=== PATIENT | male | born 1945 | race African-American/Black ===

== ENCOUNTER → 2020-10-28 10:28 | Outpatient (BNVA) | payer MEDICARE, OTHER, SELFPAY | PROVIDERS: Visit Provider Nurse Practitioner | CPT/HCPCS: Q3014 ==

== ENCOUNTER → 2021-05-07 08:44 | Outpatient (BNVA) | payer MEDICARE, OTHER, MEDICAID, SELFPAY | PROVIDERS: Visit Provider Nurse Practitioner | DX: K31.84 Gastroparesis (principal) | CPT/HCPCS: Q3014 ==

== ENCOUNTER 2021-07-31 13:39 | Outpatient (REF) | payer MEDICARE, OTHER, SELFPAY ==
--- NOTE | ~2021-07-31 | CT_ITS ---
EXAMINATION: CT CHEST SCREENING CLINICAL INFORMATION: Personal history of nicotine dependence. COMPARISON: None. TECHNIQUE: Multidetector volumetric CT imaging of the chest is performed without contrast using low dose technique. Additional 2-D coronal and sagittal reformatted images and axial 3-D maximum intensity projection (MIP) images are generated on the CT workstation. This CT examination was performed using dose optimization techniques as appropriate, variously including the following: *Automated exposure control *Adjustment of mA and/or kV according to patient size (this includes techniques or standardized protocols for targeted exams where dose is matched to indication/reason for exam; i.e. extremities or head) *Use of iterative reconstruction technique DLP: 87 mGy-cm FINDINGS: LUNGS: The lungs are well-expanded and clear of acute pneumonic consolidation. There is a 1 mm noncalcified nodule right lower lobe axial image 407/6, right middle lobe image 252/6. No additional lung nodules was seen. No ground-glass density or atelectatic changes are seen. MEDIASTINUM: The thyroid lobes are symmetric and normal. The central trachea and the bronchi are widely patent. Heart size and the great vessels are normal caliber. There are no pericardial effusions. There are minimal coronary artery calcifications. Central trachea and the bronchi are widely patent. No abnormal sized mediastinal or hilar lymph nodes seen. PLEURA: There are numerous subpleural calcified and noncalcified plaques especially posteriorly based in both upper lung regions. AXILLA: No abnormal axillary lymph nodes. There is no chest wall abnormality. UPPER ABDOMEN: Visualized liver, spleen, gallbladder, pancreas, and adrenal glands are unremarkable. OSSEOUS STRUCTURES: There is no lytic or sclerotic process seen. There is mild ventral spondylosis mid and lower dorsal spine. CT/CT lung screening IMPRESSION: Punctate 1 mm nodules in the right middle lobe and right lower lobe. In addition, there are calcified and noncalcified pleural plaques likely from previous asbestosis exposure. ASSESSMENT: Lung-RADS category 2, benign. RECOMMENDATION: Low-dose annual CT chest.
== END 2021-07-31 13:40 | disposition home or self-care (01) ==
LOC: HO.CT 13:39
PROVIDERS: Visit Provider Physician Assistant Medical
DX: Z12.2 Encounter for screening for malignant neoplasm of respiratory organs (principal); Z87.891 Personal history of nicotine dependence
CPT/HCPCS: 71271; G0296

== ENCOUNTER 2021-08-07 07:36 | Outpatient (REF) | payer MEDICARE, OTHER, SELFPAY ==
--- NOTE | ~2021-08-07 | US_ITS ---
EXAMINATION: US RETROPERITONEAL LIMITED (AORTA) CLINICAL INFORMATION: Left common iliac artery dilation. COMPARISON: AAA screening 05/19/2020. TECHNIQUE: Parks-scale, color Doppler and spectral Doppler evaluation of the abdominal aorta. FINDINGS: Atherosclerotic aorta. The measurements of the aorta in maximum AP and transverse dimensions respectively are as follows: Proximal: 3.2 x 3.0 cm. Previous 3.1 x 2.9 cm. Mid: 2.8 x 2.6 cm. Previous 2.5 x 2.1 cm. Distal: 2.5 x 2.4 cm. Previous 2.3 x 2.5 cm. PSV: 72 cm/s. The measurements of the common iliac arteries in maximum AP and TRV dimensions are as follows: Right Common Iliac Artery: 1.1 x 1.3 cm. Left Common Iliac Artery: 2.6 x 2.2 cm. Previous 1.8 x 1.7 cm. US/US abdominal aortic aneurysm IMPRESSION: Enlarging left common iliac artery aneurysm measuring 2.6 x 2.2 cm compared to 1.8 x 1.7 cm 05/19/2020. Stable abdominal aorta without aneurysm.
== END 2021-08-07 07:37 | disposition home or self-care (01) ==
LOC: HO.US 07:36
PROVIDERS: PCP Family Medicine; Visit Provider Family Medicine
DX: I72.3 Aneurysm of iliac artery (principal)
CPT/HCPCS: 76706

== ENCOUNTER 2021-11-05 09:00 | Outpatient (REF) | payer MEDICARE, OTHER, SELFPAY ==
[2021-11-05 10:20] LABS: MANUAL DIFF FLAG NO
[2021-11-05 10:33] LABS: Basophils Percent Auto 0.4 % (0-2); Eosinophils Absolute Auto 0.2 X10*3/uL (0.0-0.4); Eosinophils Percent Auto 2.3 % (0-4); Hematocrit 35.5 % (42.0-52.0); Hemoglobin 11.6 g/dl (14.0-18.0); Imm Gran Abs Auto 0.04 X10*3/uL (0.00-0.03); Imm Gran Pct Auto 0.4 % (0.0-0.4); Lymphocytes Absolute Auto 2.1 X10*3/uL (1.2-4.9); Lymphocytes Percent Auto 23.2 % (20-40); Mean Corpuscular HGB Conc 32.7 g/dl (31.0-36.0); Mean Corpuscular Hemoglobin 32.5 pg (27.0-33.0); Mean Corpuscular Volume 99.4 fL (80.0-98.0); Mean Platelet Volume 9.9 fL (9.4-12.4); Monocytes Absolute Auto 0.6 X10*3/uL (0.1-1.2); Monocytes Percent Auto 6.8 % (2-11); Neutrophils Absolute Auto 6.1 x10*3/uL (2.0-8.3); Neutrophils Percent Auto 66.9 % (45-73); Platelet Count 277 X10*3/uL (160-400); Red Blood Count 3.57 X10*6/uL (4.60-5.80); White Blood Count 9.1 X10*3/uL (4.8-10.8)
[2021-11-05 11:22] LABS: Alanine Aminotransferase 10 U/L (0-40); Alkaline Phosphatase 70 U/L (39-117); Anion Gap 13 (12-20); Aspartate Amino Transferase 12 U/L (5-37); Bilirubin Total 0.6 mg/dL (0.0-1.0); Blood Urea Nitrogen 22 mg/dL (9-16); Carbon Dioxide 26 mmol/L (22-29); Chloride 103 mmol/L (96-108); Estimated Glomerular Filt Rate 38; Glucose Random 126 mg/dL (60-115); Potassium 4.4 mmol/L (3.3-5.1); Sodium 138 mmol/L (135-145); Total Protein 6.9 g/dL (6.5-8.0)
== END 2021-11-05 09:01 | disposition home or self-care (01) ==
LOC: HO.LAB 09:00
PROVIDERS: PCP Family Medicine; Referring Provider Family Medicine; Visit Provider Nurse Practitioner
DX: K31.84 Gastroparesis (principal); D12.6 Benign neoplasm of colon, unspecified
CPT/HCPCS: 36415; 80053; 85025; 99212

== ENCOUNTER 2022-02-03 10:26 | Day surgery (SDC) | payer MEDICARE, MEDICAID, OTHER, SELFPAY ==
[2022-01-28 20:14] VITALS: BMI 34.0
--- NOTE | 2022-02-02 13:27 | P.CONAN_ITS ---
Documented by User: Soco Blas NP 02/02/22 13:28 HPI - Anesthesia Eval Consult details Narrative: 76yo M for Colonoscopy PMFSH Active Problems Active Problems: All Active Problems (Updated 01/28/22 @ 19:58 by Maryann Jimenez RN) Gastroparesis (Acute) Personal history of nicotine dependence (Acute) Tubular adenoma of colon (Acute ~2013) Past Medical History Medical History Arthritis Diabetes GERD (gastroesophageal reflux disease) Hyperlipidemia Hypertension Iliac artery aneurysm (~2019) YENNI (obstructive sleep apnea) Personal history of nicotine dependence Tubular adenoma of colon (~2013) Family History Family History (Updated 06/18/21 @ 15:14 by Kina Ying PA-C) Father Stomach cancer Mother Breast cancer Diabetes HTN (hypertension) Sister Uterine cancer Maternal Grandmother Diabetes HTN (hypertension) Surgical History Surgical History History of colonoscopy Social History Social History (Updated 07/31/21 @ 13:30 by Kina Ying PA-C) Alcohol intake: current Alcohol intake frequency: does not drink Patient Tobacco Use Status: Former Tobacco user Years Smoked: 48 - onset 18yo, 1/2ppd x 48yrs, 24pyh Use of substances other than those prescribed or required for medical reasons: Yes Substance Use Type: Marijuana Substance Use Frequency: Weekly Are you DNR?: No Advance Directives: No Advance Directives Information Provided: No Advance Directives on File: No Recently lost weight without trying: No Nutrition Risks: No Nutritional Risk Meds Allergies Allergy/AdvReac Type Severity Reaction Status Date / Time No Known Allergies Allergy Verified 11/05/21 09:09 [No Known Allergies*] Home Medications Medication Instructions Recorded Confirmed Last Taken Type allopurinol 300 mg tablet 300 mg PO DAILY 10/28/20 01/28/22 Unknown History atorvastatin 20 mg tablet 20 mg PO QAM 10/28/20 01/28/22 Unknown History carvedilol 12.5 mg tablet 12.5 mg PO BID 10/28/20 01/28/22 Unknown History doxazosin 4 mg tablet 4 mg PO DAILY 10/28/20 01/28/22 Unknown History lisinopril 10 1 tab PO QAM 10/28/20 Unknown History mg-hydrochlorothiazide 12.5 mg tablet multivitamin with minerals 1 tab PO QAM 10/28/20 01/28/22 Unknown History pioglitazone 15 mg tablet 15 mg PO QAM 10/28/20 01/28/22 Unknown History sodium bicarbonate 650 mg tablet 1,300 mg PO BID 10/28/20 01/28/22 Unknown History Exam Exam Date and Time: February 02, 2022 1327 Height,Weight and Vital Signs: Height 5 ft 9 in Weight 104.326 kg Pertinent Lab Results Pertinent Lab Results: Laboratory Tests 11/05/21 11/05/21 10:19 10:19 WBC 9.1 Hgb 11.6 L Hct 35.5 L Plt Count 277 Sodium 138 Potassium 4.4 Chloride 103 Carbon Dioxide 26 BUN 22 H Creatinine 1.74 H Assessment and Plan Assessment Anesthesia Assessment: Chart Reviewed Documented by User: Jade Godfrey MD 02/03/22 11:15 [facility] Past Medical History Medical History Arthritis Diabetes GERD (gastroesophageal reflux disease) Hyperlipidemia Hypertension Iliac artery aneurysm (~2019) YENNI (obstructive sleep apnea) Personal history of nicotine dependence Tubular adenoma of colon (~2013) Family History Family History (Updated 06/18/21 @ 15:14 by Kina Ying PA-C) Father Stomach cancer Mother Breast cancer Diabetes HTN (hypertension) Sister Uterine cancer Maternal Grandmother Diabetes HTN (hypertension) Family history of problems with anesthesia: No Surgical History Surgical History History of colonoscopy History of Problems with Anesthesia: No Social History Social History (Updated 07/31/21 @ 13:30 by Kina Ying PA-C) Alcohol intake: current Alcohol intake frequency: does not drink Patient Tobacco Use Status: Former Tobacco user Years Smoked: 48 - onset 18yo, 1/2ppd x 48yrs, 24pyh Use of substances other than those prescribed or required for medical reasons: Yes Substance Use Type: Marijuana Substance Use Frequency: Weekly Are you DNR?: No Advance Directives: No Advance Directives Information Provided: No Advance Directives on File: No Recently lost weight without trying: No Nutrition Risks: No Nutritional Risk Meds Allergies Allergy/AdvReac Type Severity Reaction Status Date / Time No Known Allergies Allergy Verified 11/05/21 09:09 [No Known Allergies*] Home Medications Medication Instructions Recorded Confirmed Last Taken Type allopurinol 300 mg tablet 300 mg PO DAILY 10/28/20 01/28/22 Unknown History atorvastatin 20 mg tablet 20 mg PO QAM 10/28/20 01/28/22 Unknown History carvedilol 12.5 mg tablet 12.5 mg PO BID 10/28/20 01/28/22 Unknown History doxazosin 4 mg tablet 4 mg PO DAILY 10/28/20 01/28/22 Unknown History lisinopril 10 1 tab PO QAM 10/28/20 Unknown History mg-hydrochlorothiazide 12.5 mg tablet multivitamin with minerals 1 tab PO QAM 10/28/20 01/28/22 Unknown History pioglitazone 15 mg tablet 15 mg PO QAM 10/28/20 01/28/22 Unknown History sodium bicarbonate 650 mg tablet 1,300 mg PO BID 10/28/20 01/28/22 Unknown History Exam Airway Mallampati Class: II TM Dist: >3cm Neck ROM: Full Denture: Upper Heart: rrr Lungs: cta Assessment and Plan Assessment Anesthesia Assessment: Anesthesia Plan Discussed and Chart Reviewed Final Anesthetic Review Family History of Problems with Anesthesia: No History of Problems with Anesthesia: No NPO: Yes ASA Class: III Final Preanesthetic Review: No Changes in Pt Med Stat, Meds/Allgs Chart Reviewed and Consent Obtained/Reviewed Patient Risk: Intermediate Procedure Risk: Intermediate Anesthetic Plan Anesthetic Plan: MAC: Disposition: Standard PACU
--- NOTE | 2022-02-03 10:41 | MHC.SHP ---
Pre-Procedural Eval Section A Date of Service: 02/03/22 Section B Chief Complaint: Benign neoplasm of colon, Relevant Family History (Specify if Yes): No Relevant Social History: None (ex smoker) Present Medications: see Short Stay Collaborative assessment Medical History: Significant History (Arthritis Diabetes GERD (gastroesophageal reflux disease) Hyperlipidemia Hypertension Iliac artery aneurysm (~2019) YENNI (obstructive sleep apnea) Personal history of nicotine dependence Tubular adenoma of colon (~2013)) History of Previous Operations: Relevant previous surgery/procedure and date(s) (History of colonoscopy) Allergies: Allergies Allergy/AdvReac Type Severity Reaction Status Date / Time No Known Allergies Allergy Verified 11/05/21 09:09 [No Known Allergies*] Review of Systems Sugical H&P ROS: Negative: Constitution, Cardiovascular, Respiratory, Neurological, Psychiatric, Hem-Onc, Allergic/Immunologic, Gastrointestinal, Genitourinary, Musculoskeletal, Integumentary, Endocrine and Eyes/Ears/Nose/Throat Exam Surgical H&P Exam: Normal: HEENT, Normal: Heart, Normal: Lungs, Normal: Extremities, Normal: Abdomen, Normal: Skin and Normal: Neurological (blind left eye) Plan Diagnosis/Plan: Unchanged I have reviewed the history and physical and performed a pertinent physical examination on my patient. No changes have occurred unless specified.
[2022-02-03 11:01] VITALS: BP 137/88; PULSE 77; RESP 17; TEMP 36.9; O2SAT 99
[2022-02-03] MEDS: Lactated Ringers 1,000 ML 100 ML IVCONT (11:02)
[2022-02-03 11:08] LABS: Glucose, Whole Blood 118 mg/dL (60-115)
--- NOTE | 2022-02-03 11:45 | P.BOP_ITS ---
Brief Operative Note Date of Service: 02/03/22 Pre-op diagnosis: hx of polyps, colon screening Post-op diagnosis: same Procedure: see op note Surgeon: Asad Lyles MD Anesthesia: MAC Was an Investigative Research Specialist used for this Procedure?: No Estimated blood loss (mL): 0 Condition: stable Disposition: PACU
--- NOTE | 2022-02-03 11:45 | W.PM.OPN ---
Operative Note Operative Note Date of Service: 02/03/22 Narrative: Operative Information Procedure Description: Colonoscopy Indication: hx of polyps, colon screening Anesthesia: MAC COLONOSCOPY Instrument: Olympus variable stiffness adult scope 190L Colonoscopy Monitoring: Vital signs and clinical assessment, continuous EKG monitoring, Pulse oximetry, Carbon Dioxide monitoring and blood pressure monitoring were done throughout the procedure. Colon withdrawal time was 13 minutes. Procedure: The patient was placed in the left lateral decubitis position and pre-procedure medications were administered. After a digital rectal examination of the ano-rectum, the video colonoscope was inserted into the rectum and advanced through the colon to the cecum/TI. The colonoscope was slowly withdrawn in a retrograde panoramic fashion and the colon mucosa was carefully examined including a retroflexed view of the rectum. Findings and interventions are described below. Procedure Difficulty: easy Findings: Terminal Ileum-normal Cecum:normal Ascending Colon: x 1 semi pedunculated polyp 10-12 mm removed with cold snare, x 1 sessile polyp 6-8 mm removed with cold snare, x 1 sessile polyp 4-6 mm removed with cold forceps Transverse Colon -normal Descending Colon:normal Sigmoid Colon: moderate diverticulosis noted, x2 sessile polyps 10-12 mm removed with cold snare Rectum: Retroflexion with small internal hemorrhoids, grade I Anorectum - normal Colon preparation: Peterson Bowel Preparation Scale Right colon; 2 Transverse colon: 3 Left colon; 3 (0 = Unprepared colon segment with mucosa not seen due to solid stool that cannot be cleared. 1 = Portion of mucosa of the colon segment seen, but other areas of the colon segment not well seen due to staining, residual stool and/or opaque liquid. 2 = Minor amount of residual staining, small fragments of stool and/or opaque liquid, but mucosa of colon segment seen well. 3 = Entire mucosa of colon segment seen well with no residual staining, small fragments of stool or opaque liquid) Impression and Post Procedure Diagnosis: polyps internal hemorrhoids diverticular disease Plan: High fiber diet leaflet Avoid straining at stool, epsom salts and sitz bath, anusol supps or cream Repeat Colonoscopy in 2-3 years if health allows or earlier if clinically indicated Above findings were reviewed with the patient and relevant handouts were provided if indicated.
[2022-02-03 11:47] VITALS: BP 109/66; PULSE 67; RESP 16; TEMP 36.7; O2SAT 98
[2022-02-03 12:02] VITALS: BP 150/91; PULSE 60; RESP 16; O2SAT 97
[2022-02-03 12:17] VITALS: BP 158/92; PULSE 60; RESP 16; TEMP 36.7; O2SAT 97
== END 2022-02-03 13:09 | disposition home or self-care (01) ==
PROVIDERS: PCP Family Medicine; Visit Provider Internal Medicine Gastroenterology
PROC: 0DBE8ZZ Excision of Large Intestine, Via Natural or Artificial Opening Endoscopic (ICD-10-PCS; CPT 45385; principal; 2022-02-03 12:30)
DX: Z12.11 Encounter for screening for malignant neoplasm of colon (principal); Z86.010 Personal history of colon polyps; D12.2 Benign neoplasm of ascending colon; D12.5 Benign neoplasm of sigmoid colon; K57.30 Diverticulosis of large intestine without perforation or abscess without bleeding; K64.8 Other hemorrhoids; K21.9 Gastro-esophageal reflux disease without esophagitis; E78.5 Hyperlipidemia, unspecified; I72.3 Aneurysm of iliac artery; I10 Essential (primary) hypertension; G47.33 Obstructive sleep apnea (adult) (pediatric); E11.9 Type 2 diabetes mellitus without complications; Z79.84 Long term (current) use of oral hypoglycemic drugs; Z79.899 Other long term (current) drug therapy; Z87.891 Personal history of nicotine dependence
CPT/HCPCS: 45385; 45380; 82947; 88305

== ENCOUNTER → 2022-02-16 15:46 | Outpatient (BNVA) | payer MEDICARE, OTHER, SELFPAY | PROVIDERS: PCP Family Medicine; Visit Provider Nurse Practitioner | DX: K31.84 Gastroparesis (principal); D12.2 Benign neoplasm of ascending colon; D12.5 Benign neoplasm of sigmoid colon; Z98.890 Other specified postprocedural states | CPT/HCPCS: 99212 ==

== ENCOUNTER 2022-11-26 07:41 | Outpatient (REF) | payer MEDICARE, MEDICAID, SELFPAY ==
--- NOTE | ~2022-11-26 | CT_ITS ---
EXAMINATION: LUNG CANCER SCREENING CT CHEST WITHOUT CONTRAST CLINICAL INFORMATION: Former smoker with 50 pack year history, quit 15 years ago. COMPARISON: 07/31/2021 TECHNIQUE: Multidetector volumetric CT imaging of the chest was obtained noncontrast using low dose screening CT technique. Axial thin section 0.625 mm reformations in soft tissue and lung windows were obtained. Sagittal and coronal reformations were obtained. Axial MIP images were also created and reviewed. This CT examination was performed using dose optimization techniques as appropriate, variously including the following: *Automated exposure control *Adjustment of mA and/or kV according to patient size (this includes techniques or standardized protocols for targeted exams where dose is matched to indication/reason for exam; i.e. extremities or head) *Use of iterative reconstruction technique TOTAL EXAM DLP: 93 mGy-cm. FINDINGS: PULMONARY NODULES: No new or suspicious pulmonary nodules. Stable calcified benign calcified and noncalcified nodular pleural plaques along the bilateral posterior hemithoraces, most notably along the superior segments of the lower lobes bilaterally. There are couple stable pleural nodules along the right diaphragmatic pleura as well. LUNGS / PLEURA: Minimal emphysema. Diffuse mild bronchial wall thickening without bronchiectasis. No pleural effusion or pneumothorax. MEDIASTINUM / VINCE: Heart normal in size without pericardial effusion. Great vessels normal caliber. No lymphadenopathy. Coronary calcifications present. Imaged thyroid gland unremarkable. CHEST WALL / AXILLA: Unremarkable. UPPER ABDOMEN: Bilateral renal cortical thinning. Right renal cysts are benign. No follow-up imaging recommended. OSSEOUS STRUCTURES: No acute or suspicious osseous abnormalities. CT/CT lung screening IMPRESSION: * No evidence of pulmonary malignancy. * Stable bilateral pleural nodules and plaques. Favor asbestos related pleural disease. ASSESSMENT: Lung RADS category: 2. Benign appearance or behavior. Nodules with a very low likelihood of becoming a clinically active cancer due to size or lack of growth. Continue annual screening with low-dose CT in 12 months. Probability of malignancy less than 1%. INCIDENTAL FINDINGS (S CATEGORY): None. RECOMMENDATION: Follow up low dose CT chest in 1 year.
== END 2022-11-26 07:42 | disposition home or self-care (01) ==
LOC: HO.CT 07:41
PROVIDERS: Visit Provider Physician Assistant Medical
DX: Z12.2 Encounter for screening for malignant neoplasm of respiratory organs (principal); Z87.891 Personal history of nicotine dependence
CPT/HCPCS: 71271

== ENCOUNTER 2023-08-12 08:37 | Outpatient (REF) | payer OTHER, SELFPAY ==
--- NOTE | ~2023-08-12 | XR_ITS ---
EXAMINATION: XR HIP, RIGHT CLINICAL INFORMATION: Intermittent hip pain COMPARISON: None available. TECHNIQUE: Two views of the right hip. FINDINGS: No fracture. Alignment is anatomic. Hip joint space is maintained. Soft tissues are unremarkable. XR/XR hip RT min 2V IMPRESSION: Normal right hip.
== END 2023-08-12 08:38 | disposition home or self-care (01) ==
LOC: HO.HHCX 08:37
PROVIDERS: Visit Provider Family Medicine
DX: M25.551 Pain in right hip (principal); G89.29 Other chronic pain
CPT/HCPCS: 73502

== ENCOUNTER 2023-12-01 07:50 | Outpatient (REF) | payer MEDICARE, SELFPAY ==
--- NOTE | ~2023-12-01 | CT_ITS ---
EXAMINATION: CT CHEST SCREENING CLINICAL INFORMATION: Nonsmoker for 18 years with history of 1 pack per day for 40 years. COMPARISON: CT lung screening 11/26/2022. TECHNIQUE: Multidetector volumetric CT imaging of the chest is performed without contrast using low dose technique. Additional 2D coronal and sagittal reformatted images and axial 3D maximum intensity projection (MIP) images are generated on the CT workstation. This CT examination was performed using dose optimization techniques as appropriate, variously including the following: *Automated exposure control. *Adjustment of mA and/or kV according to patient size (this includes techniques or standardized protocols for targeted exams where dose is matched to indication/reason for exam; i.e. extremities or head). *Use of iterative reconstruction technique. DLP: 71 mGy-cm FINDINGS: LUNGS: Again seen are multiple nodular pleural plaques most with calcification. No new or suspicious lung masses seen. There are mild emphysematous changes seen along with bronchial thickening. MEDIASTINUM: The mediastinum is unremarkable. There is trace anterior pericardial fluid. CORONARY ARTERY CALCIFICATION: Mild. PLEURA: There is no pleural effusion. No pleural mass or thickening. AXILLA: No lymphadenopathy. UPPER ABDOMEN: Cholelithiasis. Benign renal cysts are again seen which need no additional imaging or follow-up. OSSEOUS STRUCTURES: Unremarkable. CT/CT lung screening IMPRESSION: Stable appearance of calcified pleural plaques. No suspicious lung nodules. ASSESSMENT: Lung-RADS category 2: Benign. RECOMMENDATION: Routine annual low-dose CT screening in 12 months.
== END 2023-12-01 07:51 | disposition home or self-care (01) ==
LOC: HO.CT 07:50
PROVIDERS: PCP Family Medicine; Visit Provider Nurse Practitioner Family
DX: Z12.2 Encounter for screening for malignant neoplasm of respiratory organs (principal); Z87.891 Personal history of nicotine dependence
CPT/HCPCS: 71271

== ENCOUNTER 2024-02-10 08:15 | Outpatient (REF) | payer MEDICARE, SELFPAY ==
[2024-02-10 11:17] LABS: MANUAL DIFF FLAG NO
[2024-02-10 11:29] LABS: Basophils Percent Auto 0.4 % (0-2); Eosinophils Absolute Auto 0.2 X10*3/uL (0.0-0.4); Eosinophils Percent Auto 2.9 % (0-4); Hematocrit 33.2 % (42.0-52.0); Hemoglobin 11.2 g/dl (14.0-18.0); Imm Gran Abs Auto 0.03 X10*3/uL (0.00-0.03); Imm Gran Pct Auto 0.4 % (0.0-0.4); Lymphocytes Absolute Auto 1.7 X10*3/uL (1.2-4.9); Lymphocytes Percent Auto 24.6 % (20-40); Mean Corpuscular HGB Conc 33.7 g/dl (31.0-36.0); Mean Corpuscular Hemoglobin 33.5 pg (27.0-33.0); Mean Corpuscular Volume 99.4 fL (80.0-98.0); Mean Platelet Volume 10.2 fL (9.4-12.4); Monocytes Absolute Auto 0.6 X10*3/uL (0.1-1.2); Monocytes Percent Auto 8.2 % (2-11); Neutrophils Absolute Auto 4.3 x10*3/uL (2.0-8.3); Neutrophils Percent Auto 63.5 % (45-73); Platelet Count 265 X10*3/uL (160-400); Red Blood Count 3.34 X10*6/uL (4.60-5.80); Red Cell Distribution Width 14.4 % (11.0-16.0); White Blood Count 6.8 X10*3/uL (4.8-10.8)
[2024-02-10 12:00] LABS: Parathyroid Hormone Intact 249.2 pg/mL (8.7-77.1)
[2024-02-10 12:13] LABS: Anion Gap 13 (12-20); Blood Urea Nitrogen 22 mg/dL (9-16); Calcium 9.2 mg/dL (8.4-10.2); Carbon Dioxide 26 mmol/L (22-29); Chloride 101 mmol/L (96-108); Estimated Glomerular Filt Rate 38; Ferritin 199 ng/mL (20-250); Iron 44 mcg/dL (45-160); Percent Iron Saturation 38 % (15-50); Phosphorus 3.4 mg/dL (2.7-4.5); Potassium 3.7 mmol/L (3.3-5.1); Sodium 136 mmol/L (135-145); Total Iron Binding Capacity 117 mcg/dL (228-428); Unsaturated Iron Binding 73 ug/dL
== END 2024-02-10 08:16 | disposition home or self-care (01) ==
LOC: HO.HHCL 08:15
PROVIDERS: Visit Provider Student in an Organized Health Care Education/Training Program
DX: N18.32 Chronic kidney disease, stage 3b (principal); D50.8 Other iron deficiency anemias
CPT/HCPCS: 36415; 80051; 82310; 82565; 82728; 83540; 83970; 84100; 84520; 85025

== ENCOUNTER 2024-02-23 08:48 | Outpatient (REF) | payer MEDICARE, SELFPAY ==
[2024-02-23 11:49] LABS: Hematocrit 34.3 % (42.0-52.0); Hemoglobin 11.5 g/dl (14.0-18.0); Mean Corpuscular HGB Conc 33.5 g/dl (31.0-36.0); Mean Corpuscular Hemoglobin 33.5 pg (27.0-33.0); Mean Platelet Volume 9.7 fL (9.4-12.4); Platelet Count 265 X10*3/uL (160-400); Red Blood Count 3.43 X10*6/uL (4.60-5.80); Red Cell Distribution Width 14.2 % (11.0-16.0); White Blood Count 6.9 X10*3/uL (4.8-10.8)
[2024-02-23 11:57] LABS: Estimated Average Glucose 123 mg/dL; Hemoglobin A1c % 5.9 % (<6.0)
[2024-02-23 12:07] LABS: Alanine Aminotransferase 9 U/L (0-40); Albumin Level 3.9 g/dL (3.5-5.0); Alkaline Phosphatase 74 U/L (39-117); Anion Gap 14 (12-20); Aspartate Amino Transferase 14 U/L (5-37); Bilirubin Direct 0.3 mg/dL (0.0-0.5); Bilirubin Total 0.7 mg/dL (0.0-1.0); Blood Urea Nitrogen 23 mg/dL (9-16); Calcium 9.8 mg/dL (8.4-10.2); Carbon Dioxide 26 mmol/L (22-29); Chloride 102 mmol/L (96-108); Cholesterol 160 mg/dL (<200); Estimated Glomerular Filt Rate 36; Glucose Random 137 mg/dL (60-115); HDL Cholesterol 41 mg/dL (>40); LDL Cholesterol Calculated 102 mg/dL (<100); Potassium 3.6 mmol/L (3.3-5.1); Sodium 138 mmol/L (135-145); Total Protein 6.8 g/dL (6.5-8.0); Triglycerides 87 mg/dL (<150)
[2024-02-23 12:37] LABS: Creatinine Urine 299.17 mg/dL; Microalbum/Creatinine Ratio Ur 99.6 ug/mg cr (<30)
[2024-02-23 12:44] LABS: Free T4 (Free Thyroxine) 1.08 ng/dL (0.71-1.85); Thyroid Stimulating Hormone 0.45 uIU/mL (0.32-4.0); Vitamin D 25-OH Total 32.6 ng/mL (>30)
== END 2024-02-23 08:49 | disposition home or self-care (01) ==
LOC: HO.HHCL 08:48
PROVIDERS: Visit Provider Family Medicine
DX: E11.22 Type 2 diabetes mellitus with diabetic chronic kidney disease (principal); I12.9 Hypertensive chronic kidney disease with stage 1 through stage 4 chronic kidney disease, or unspecified chronic kidney disease; N18.4 Chronic kidney disease, stage 4 (severe)
CPT/HCPCS: 36415; 80048; 80061; 80076; 82043; 82306; 82570; 83036; 84439; 84443; 85027

== ENCOUNTER 2024-07-24 09:37 | Outpatient (REF) | payer MEDICARE, SELFPAY ==
[2024-07-24 11:43] LABS: Appearance Urine Clear; Color Urine Dark Yellow; Glucose Urine UA Negative (Negative); Leukocyte Esterase Urine Small (1+) (Negative); Nitrite Urine Negative (Negative); PH 6.5 (5.0-9.0); UMIC TRIGGER UA YES; Urine Blood Negative (Negative); Urine Ketones Trace mg/dL (Negative); Urine Protein 30 (1+) mg/dL (Neg-Trace)
[2024-07-24 11:48] LABS: MANUAL DIFF FLAG NO
[2024-07-24 11:50] LABS: Bacteria Urine None Seen (None Seen); Hyaline Casts Urine 0-2 /LPF (0-2); RBC Urine 0-2 /HPF (0-2); Squamous Epithelial Cell Urine 0-2 /HPF (0-2)
[2024-07-24 12:04] LABS: Basophils Percent Auto 0.4 % (0-2); Eosinophils Absolute Auto 0.1 X10*3/uL (0.0-0.4); Eosinophils Percent Auto 2.4 % (0-4); Hematocrit 33.9 % (42.0-52.0); Hemoglobin 11.3 g/dl (14.0-18.0); Imm Gran Abs Auto 0.01 X10*3/uL (0.00-0.03); Imm Gran Pct Auto 0.2 % (0.0-0.4); Lymphocytes Absolute Auto 1.5 X10*3/uL (1.2-4.9); Lymphocytes Percent Auto 28.9 % (20-40); Mean Corpuscular HGB Conc 33.3 g/dl (31.0-36.0); Mean Corpuscular Hemoglobin 32.6 pg (27.0-33.0); Mean Corpuscular Volume 97.7 fL (80.0-98.0); Mean Platelet Volume 10.1 fL (9.4-12.4); Monocytes Absolute Auto 0.5 X10*3/uL (0.1-1.2); Neutrophils Percent Auto 59.1 % (45-73); Platelet Count 228 X10*3/uL (160-400); Red Blood Count 3.47 X10*6/uL (4.60-5.80)
[2024-07-24 12:28] LABS: Anion Gap 11 (12-20); Blood Urea Nitrogen 19 mg/dL (9-16); Calcium 9.3 mg/dL (8.4-10.2); Carbon Dioxide 25 mmol/L (22-29); Chloride 101 mmol/L (96-108); Estimated Glomerular Filt Rate 37; Iron 50 mcg/dL (45-160); Percent Iron Saturation 43 % (15-50); Phosphorus 2.9 mg/dL (2.7-4.5); Potassium 3.4 mmol/L (3.3-5.1); Sodium 134 mmol/L (135-145); Total Iron Binding Capacity 117 mcg/dL (228-428); Unsaturated Iron Binding 67 ug/dL
[2024-07-24 12:39] LABS: Creatinine Urine 277.04 mg/dL; Total Protein Urine Random 28 mg/dL (<12)
[2024-07-24 12:41] LABS: Parathyroid Hormone Intact 255.7 pg/mL (8.7-77.1)
[2024-07-24 12:46] LABS: Ferritin 153 ng/mL (20-250); Vitamin D 25-OH Total 22.6 ng/mL (>30)
== END 2024-07-24 09:38 | disposition home or self-care (01) ==
LOC: HO.HHCL 09:37
PROVIDERS: Visit Provider Internal Medicine Nephrology
DX: N18.32 Chronic kidney disease, stage 3b (principal); D50.8 Other iron deficiency anemias; E11.22 Type 2 diabetes mellitus with diabetic chronic kidney disease; I10 Essential (primary) hypertension; D63.1 Anemia in chronic kidney disease
CPT/HCPCS: 36415; 80051; 81001; 82306; 82310; 82565; 82570; 82728; 83540; 83970; 84100; 84156; 84520; 85025

== ENCOUNTER 2024-11-25 14:52 | Emergency (ER) | payer MEDICARE, SELFPAY ==
--- NOTE | ~2024-11-25 | CT_ITS ---
CLINICAL HISTORY: left hand weak?cva CT Head Without Contrast: Comparison: None Findings: Cortical sulci are prominent There are scattered areas of periventricular white matter hypodensity due to microangiopathy. Basal ganglia are unremarkable No shift in midline structures No intraparenchymal bleeding or abnormal extra axial blood fluid collections Normal pituitary size Clear paranasal sinuses Unremarkable orbital structures No depressed fractures Impression: Chronic involutional volume loss with no acute findings. This document has been electronically signed by: Papo Wilson MD on 11/25/2024 17:04:13
--- NOTE | 2024-11-25 15:01 | ECG_ITS ---
Test Reason : CHEST PAIN Blood Pressure : */* mmHG Vent. Rate : 65 BPM Atrial Rate : 65 BPM P-R Int : 192 ms QRS Dur : 78 ms QT Int : 388 ms P-R-T Axes : 67 -21 -13 degrees QTcB Int : 403 ms Sinus rhythm with occasional Premature ventricular complexes Nonspecific ST abnormality Abnormal ECG When compared with ECG of 29-Dec-2014 07:38, Premature ventricular complexes are now Present T wave inversion no longer evident in Anterolateral leads Referred By: Cata Zazueta Electronically Signed By: JENNIFER BROWN
[2024-11-25 15:06] VITALS: BP 184/110; PULSE 68; O2SAT 99
[2024-11-25 15:08] VITALS: BP 152/77; BP 184/110; PULSE 65; PULSE 68; RESP 18; TEMP 36.7; O2SAT 100; O2SAT 99; BMI 32.8
[2024-11-25 15:20] VITALS: BP 142/79; PULSE 65; RESP 14; O2SAT 98
--- NOTE | 2024-11-25 15:36 | ED_ITS ---
HPI - Neuro Symptoms/Deficit General Chief Complaint: Neuro Symptoms/Deficit Stated Complaint: CHEST PAIN, HIGH BP PER EMS Time Seen by Provider: 11/25/24 15:25 Source: patient Mode of arrival: ambulatory Limitations: no limitations History of Present Illness ED Provider: HPI Narrative: patient's history of hypertension legally blind in the left eye was sitting on the table for the food at 13:45 and then he noticed that he is not able to dorsiflexes his left hand feels numb no other weakness no headache no nausea no vomiting Related Data Home Medications ?Medication ?Instructions ?Recorded ?Confirmed allopurinol 300 mg tablet 300 mg PO DAILY 10/28/20 01/28/22 atorvastatin 20 mg tablet 20 mg PO QAM 10/28/20 01/28/22 carvedilol 12.5 mg tablet 12.5 mg PO BID 10/28/20 01/28/22 doxazosin 4 mg tablet 4 mg PO DAILY 10/28/20 01/28/22 lisinopril 10 1 tab PO QAM 10/28/20 mg-hydrochlorothiazide 12.5 mg tablet multivitamin with minerals 1 tab PO QAM 10/28/20 01/28/22 pioglitazone 15 mg tablet 15 mg PO QAM 10/28/20 01/28/22 sodium bicarbonate 650 mg tablet 1,300 mg PO BID 10/28/20 01/28/22 atropine 1 % eye drops 0 drp ophthalmic (eye) 02/16/22 woidjcgyfhob-pdhswfez-mrvo 1 tab PO QAM 02/16/22 fumarate 7.5 mg-folic acid 400 mcg tablet Previous Rx's ?Medication ?Instructions ?Recorded metoclopramide HCl 5 mg tablet 5 mg PO .tidac 30 days #90 tabs 02/16/22 (Reglan) Allergies Allergy/AdvReac Type Severity Reaction Status Date / Time No Known Allergies Allergy Verified 11/25/24 15:15 [No Known Allergies*] Review of Systems Review of Systems: Yes all other systems are reviewed and are negative [facility] Past Medical History Medical History Arthritis Diabetes GERD (gastroesophageal reflux disease) YENNI (obstructive sleep apnea) Iliac artery aneurysm (~2019) Personal history of nicotine dependence Hyperlipidemia Hypertension Tubular adenoma of colon (~2013) Surgical History History of colonoscopy Family History Family History Father Stomach cancer Mother Breast cancer Diabetes HTN (hypertension) Sister Uterine cancer Maternal Grandmother Diabetes HTN (hypertension) Social History Social History Alcohol intake: current Alcohol intake frequency: does not drink Patient Tobacco Use Status: Former Tobacco user Years Smoked: 48 - onset 18yo, 1/2ppd x 48yrs, 24pyh Smoked in Last 30 Days: No Substance Use Type: Marijuana Advance Directives: No Advance Directives Information Provided: No Physical Exam Vital Signs: Vital Signs: Last Vital Signs Temp 98.0 F 11/25/24 15:08 Pulse 65 11/25/24 15:20 Resp 14 11/25/24 15:20 BP 142/79 H 11/25/24 15:20 Pulse Ox 98 11/25/24 15:20 O2 Del Method Room Air 11/25/24 15:20 BMI result Body Mass Index 32.8 Appearance: Alert. Oriented X3. No acute distress. Eyes: opacified left eye ENT: Pharynx normal. Oral Mucosa moist Neck: Normal inspection. Neck supple. CVS: Normal heart rate and rhythm. Pulses normal. Respiratory: No respiratory distress. Equal air entry bilateral, no wheezing/rales/rhonchi Abdomen: Soft and nontender. Bowel sounds are present, no mass palpable, no CVA tenderness Skin: Skin warm and dry. Normal skin color. Normal skin turgor. Extremities: No lower extremity edema. No calf tenderness Neuro: Oriented X 3. left wrist drop normal wrist flexion and sensation neurovascular intact No sensory deficit.No cerebellar signs , cranial nerves II- XII intact Medical Decision Making Medical Decision Making MDM Narrative: patient's left wrist drop from radiating in the palsy no other neuro deficit noticed will do head CT rule out any space-occupying lesion/CVA CT scan is negative for acute final report is pending patient is signed out Dr. Hunter pending labs with apply wrist splint NIH Stroke Scale Internal: Initial- Upon Arrival Level of Consciousness: Alert Level of Consciousness Questions: Answers both questions correctly Level of Consciousness Commands: Performs both tasks correctly Best Gaze: Normal Visual: No visual loss Facial Palsy: Normal Motor Arm (Right): No drift Motor Arm (Left): No drift Motor Leg (Right): No drift Motor Leg (Left): No drift Limb Ataxia: Absent Sensory: Normal Best Language: No aphasia Dysarthia: Normal Extinction and Inattention: No abnormality Score: 0 Discharge Plan Discharge Clinical Impression: Left wrist drop Patient Disposition: Home, Self-Care Instructions: Radial Nerve Palsy (ED) Additional Instructions: wear the splint for support your symptoms should improve with time follow up with neurologist Prescriptions: No Action atorvastatin 20 mg tablet 20 mg PO QAM carvedilol 12.5 mg tablet 12.5 mg PO BID lisinopril-hydrochlorothiazide 10-12.5 mg tablet 1 tab PO QAM multivitamin with minerals Tablet 1 tab PO QAM pioglitazone 15 mg tablet 15 mg PO QAM doxazosin 4 mg tablet 4 mg PO DAILY allopurinol 300 mg tablet 300 mg PO DAILY sodium bicarbonate 650 mg tablet 1,300 mg PO BID [id number]-[id number]-[id number] fum-folic ac 7.5 mg iron-400 mcg tablet 1 tab PO QAM atropine 1 % drops 0 drp ophthalmic (eye) metoclopramide HCl [Reglan] 5 mg tablet 5 mg PO .tidac 30 Days Qty: 90 6RF Referrals: Norma Franco MD [Physician] - 2 weeks Print Language: Welsh
[2024-11-25 16:00] VITALS: BP 145/69; PULSE 66; RESP 18; TEMP 531.6; TEMP 989; O2SAT 98
[2024-11-25 16:38] LABS: MANUAL DIFF FLAG NO
[2024-11-25 16:40] LABS: Basophils Percent Auto 0.3 % (0-2); Eosinophils Absolute Auto 0.2 X10*3/uL (0.0-0.4); Eosinophils Percent Auto 2.5 % (0-4); Hemoglobin 10.4 g/dl (14.0-18.0); Imm Gran Abs Auto 0.02 X10*3/uL (0.00-0.03); Imm Gran Pct Auto 0.3 % (0.0-0.4); Lymphocytes Absolute Auto 1.4 X10*3/uL (1.2-4.9); Lymphocytes Percent Auto 21.3 % (20-40); Mean Corpuscular HGB Conc 33.5 g/dl (31.0-36.0); Mean Corpuscular Hemoglobin 33.3 pg (27.0-33.0); Mean Corpuscular Volume 99.4 fL (80.0-98.0); Mean Platelet Volume 9.4 fL (9.4-12.4); Monocytes Absolute Auto 0.6 X10*3/uL (0.1-1.2); Monocytes Percent Auto 9.5 % (2-11); Neutrophils Absolute Auto 4.3 x10*3/uL (2.0-8.3); Neutrophils Percent Auto 66.1 % (45-73); Platelet Count 207 X10*3/uL (160-400); Red Blood Count 3.12 X10*6/uL (4.60-5.80); White Blood Count 6.5 X10*3/uL (4.8-10.8)
[2024-11-25 16:56] LABS: Alanine Aminotransferase < 6 U/L (0-40); Albumin Level 3.5 g/dL (3.5-5.0); Alkaline Phosphatase 87 U/L (39-117); Anion Gap 11 (12-20); Aspartate Amino Transferase 14 U/L (5-37); Bilirubin Total 0.4 mg/dL (0.0-1.0); Blood Urea Nitrogen 32 mg/dL (9-16); Carbon Dioxide 27 mmol/L (22-29); Chloride 107 mmol/L (96-108); Creatinine Clr Calc Pharmacy 33.8; Estimated Glomerular Filt Rate 31; Glucose Random 119 mg/dL (60-115); Magnesium 1.6 mg/dL (1.6-2.6); Potassium 4.6 mmol/L (3.3-5.1); Sodium 140 mmol/L (135-145); Total Protein 6.4 g/dL (6.5-8.0)
[2024-11-25 17:01] LABS: Troponin-I High Sensitivity 11.8 ng/L (<3.5-35.0)
[2024-11-25 18:33] VITALS: BP 145/69; PULSE 66; RESP 18; TEMP 37.2; O2SAT 98
== END 2024-11-25 18:35 | disposition home or self-care (01) ==
PROVIDERS: Physician Assistant Medical; Emergency Provider Internal Medicine; PCP Family Medicine
DX: M21.332 Wrist drop, left wrist (principal); R07.9 Chest pain, unspecified
CPT/HCPCS: 36415; 70450; 80053; 83735; 84484; 85025; 85610; 93005; 99285

== ENCOUNTER → 2024-11-25 15:01 | Outpatient (BNV) | payer MEDICARE, SELFPAY | PROVIDERS: Emergency Provider Internal Medicine; PCP Family Medicine; Visit Provider Internal Medicine | DX: I49.3 Ventricular premature depolarization (principal) | CPT/HCPCS: 93010 ==

== ENCOUNTER → 2024-11-25 15:35 | Outpatient (BNV) | payer MEDICARE, SELFPAY | PROVIDERS: Emergency Provider Internal Medicine; PCP Family Medicine; Visit Provider Radiology Diagnostic Radiology | DX: R53.1 Weakness (principal) | CPT/HCPCS: 70450 ==

== ENCOUNTER 2025-03-29 14:39 | Outpatient (AMB) | payer MEDICARE, SELFPAY ==
--- OUTSIDE RECORDS SUMMARY | 2025-03-29 14:41 | XMS_ITS | Clinical Summary ---
Author Organization [address] [place] [address] Address [address] [place] [address] Phone Care Team Providers Care Guest Services Agent Name Role Phone Viktoriya Santillan Primary Care Provider [phone] Allergies No known active allergies Medications loratadine 10 mg capsule Take 1 Capsule by mouth daily. Active pioglitazone (ACTOS) 15 mg tablet Take 1 Tablet by mouth daily. Active metoclopramide HCl (REGLAN ORAL) Take 5 mg by mouth 3 times daily. 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 Cataract 06/07/2024 Chronic kidney disease, stag e 4 (severe) ([facility] V24, [facility] V28) 06/07/2024 Hyperlipidemia 06/07/2024 Hypertensive retinopathy 06/07/2024 Localized primary osteoarthritis 06/07/2024 Obesity 06/07/2024 YENNI (obstructive sleep apnea) 06/07/2024 Retinal vascular occlusion 06/07/2024 T2DM (type 2 diabetes mellitus) ([facility] V24, [facility] V28) 06/07/2024 Tobacco dependence syndrome 06/07/2024 Tubular adenoma 06/07/2024 Immunizations Name Administration Dates Next Due Moderna SARS-CoV-2 COVID-19, mRNA, LNP-S, preservative free 09/16/2022 Social History Tobacco Use Types Packs/Day Years Used Date Smoking Tobacco: Never Assessed Sex and Gender Information Value Date Recorded Sex Assigned at Not on file Legal Sex Male 11:41 AM EDT Gender Identity Not on file Sexual Orientation Not on file Last Filed Vital Signs Vital Sign Reading Time Taken Comments Blood Pressure - - Pulse - - Temperature - - Respiratory Rate - - Oxygen Saturation - - Inhaled Oxygen Concentration - - Weight 102 kg (224 lb) 07/23/2024 11:10 AM EST Height 175.3 cm (5' 9 ) 07/23/2024 11:10 AM EST Body Mass Index 33.08 07/23/2024 11:10 AM EST Plan of Treatment Health Maintenance Due Date Last Done Comments Diabetes: Annual Foot Exam 1955 Diabetes: Annual Retina Eye Exam 1955 Diabetes: Annual GFR (Glomerular Filtration Rate) 06/10/1999 06/10/1998 Diabetes: Annual Urine Albumin-Creatinine Ratio (uACR) 06/08/2024 06/10/1998 Falls Risk Assessment 06/08/2024 Hepatitis C Screening 06/08/2024 Medicare Annual Wellness Visit 06/08/2024 Social Influencers of Health Screening 06/08/2024 Hypertension/CHF/CAD Annual BMP Blood Test 07/23/2024 06/10/1998 Diabetes: Blood Sugar Control Test (HGBA1C) 08/24/2024 02/23/2024, 01/30/2021 Depression Screening 08/29/2024 COVID-19 Vaccine (8 - Mixed Product risk season) 2024 06/08/2024, 10/03/2023, 09/16/2022, Additional history exists Influenza Vaccine (#1) 2025 Cholesterol Screening (Lipid Panel) 02/22/2029 02/23/2024 DTaP,Tdap,and Td Vaccines (4 - Td or Tdap) 03/30/2032 03/30/2022, 03/28/2012, 01/26/2006 Hepatitis A Vaccines Aged Out 05/24/2012 No long er eligible based on patient's age to complete this topic Zoster Vaccines Completed 06/05/2019, 03/08/2019 Pneumococcal Vaccine: 50+ Years Completed 02/11/2021, 05/24/2012, 05/24/2012 Hepatitis B Vaccines Completed 06/11/2021, 02/11/2021, 05/24/2012 RSV Immunization Adult Patients Completed 05/29/2024 HIB Vaccines Aged Out No longer eligi ble based on patient's age to complete this topic HPV Vaccines Aged Out No longer eligi ble based on patient's age to complete this topic IPV Vaccines Aged Out No longer eligi ble based on patient's age to complete this topic MMR Vaccines Aged Out No longer eligi ble based on patient's age to complete this topic Meningococcal ACWY Vaccine Aged Out N o longer eligible based on patient's age to complete this topic Meningococcal B Vaccine Aged Out No l onger eligible based on patient's age to complete this topic RSV Immunization Patients Under 20 months Aged Out No longer eligible based on patient's age to complete this topic Varicella Vaccines Aged Out No longer eligible based on patient's age to complete this topic Procedures Procedure Name Priority Date/Time Associated Diagnosis Comments URINE ALBUMIN CREATININE RATIO Routine 06/10/1998 ANNUAL BMP BLOOD TEST Routine 06/10/1998 from Last 3 Months or Most Recently Relevant to Health Maintenance Results * Urine Albumin Creatinine Ratio (06/10/1998) Urine Albumin Creatinine Ratio Abstracted Historical Provider MD HEALTH MAINTENANCE Final Result * Annual BMP Blood Test (06/10/1998) Annual BMP Blood Test Abstracted Historical Provider MD HEALTH MAINTENANCE Final Result from Last 3 Months or Most Recently Relevant to Health Maintenance Insurance , [place] [id number] [employer] MED[employer]ARE [employer]VANTAGE MEDICAID - [place] Care Teams Guest Services Agent Relationship Specialty Start Date End Date Viktoriya Santillan DO [address] [place] [address] PCP - General 03/13/24
--- OUTSIDE RECORDS SUMMARY | 2025-03-29 14:41 | XMS_ITS | Encounter Summary ---
Author Organization [facility] Address [address] [place] [address] Phone Care Team Providers Care Buyer Liaison Name Role Phone Viktoriya Santillan DO Primary Care Provider Unava ilable Encounter Details Date Type Department Care Team (Late st Contact Info) Description 08/31/2022 Documentation Only [facility] [address] [place] [address] Timbo Murillo MD [address] [place] [address] Social History Tobacco Use Types Packs/Day Years Used Date Smoking Tobacco: Some Days Cigarettes Started: 01/09/2018 Sex and Gender Information Value Date Recorded Sex Assigned at Not on file Legal Sex Male 4:34 PM EST Gender Identity Not on file Sexual Orientation Not on file documented as of this encounter Plan of Treatment Upcoming Encounters Date Type Department Care Team (Late st Contact Info) Description 07/05/2025 2:15 PM EST Office Visit [facility] [address] [place] [address] Timbo Murillo MD [address] [place] [address] documented as of this encounter Visit Diagnoses Not on filedocumented in this encounter Care Teams Buyer Liaison Relationship Specialty Start Date End Date Viktoriya Santillan DO [address] [place] [id number] PCP - General Family Medicine 07/24/24 documented as of this encounter
--- NOTE | 2025-03-29 15:01 | A.OFFVIS_ITS ---
Vital Signs 03/29/25 15:20 Height 5 ft 9 in Weight 238 lb 1.588 oz BMI 35.2 Intake Visit Reasons: [place] recall q3 years. OK per November Intake Note: Patient in office today for colonoscopy screening. CC: Patient denies having any GI symptoms today. He is not to sure about what medications he is taking because he gets them in the mailboxes. Exploration Geologist Required: Yes Accompanied by: Self / Same As Patient Allergies No Known Allergies (No Known Allergies*) Allergy (Verified 03/29/25 15:28) HPI HPI [place] recall q3 years. OK per November: Details: Assessment & Plan (1) Tubular adenoma of colon: Onset Date: ~2013 Comment: (TA in 2013 scope, and 2021 scope repeat 2-3 years large pendunculated polyp Code(s): D12.6 - Benign neoplasm of colon, unspecified Plan: He tolerated the procedure well. He is agreeable to the 2-3 year follow up. His bowels returned to normal well after the procedure. He continues to do well with the reglan, but is only needing to take it 2 ath the most 3 times a day. Will reduce the frequency as he was getting too many pills, and had to slow down the refills at the pharamacy (had been qid). ROV 6 mos. (2) Gastroparesis: Code(s): K31.84 - Gastroparesis Medications: Changed From metoclopramide HCl (Reglan) 5 mg PO QIDACHS 30 days 120 tabs 6RF K31.84 - Gastroparesis To metoclopramide HCl (Reglan) 5 mg PO .tidac 30 days 90 tabs 6RF K31.84 - Gastroparesis Laboratory Tests 07/24/24 11/25/24 09:45 16:32 WBC 6.5 Hgb 10.4 L Hct 31.0 L MCV 99.4 H MCH 33.3 H Plt Count 207 Estimated GFR 31 Total Bilirubin 0.4 AST 14 ALT < 6 Alkaline Phosphatase 87 PTH Intact 255.7 H TODAYS VISITA Last colonoscopy: Ascending Colon: x 1 semi pedunculated polyp 10-12 mm removed with cold snare, x 1 sessile polyp 6-8 mm removed with cold snare, x 1 sessile polyp 4-6 mm removed with cold forceps He says he continues to do well, I assumed his primary is prescribing his Reglan for his gastroparesis. No prior problems with anesthesia or sedation. No cardiac or respiratory problems. No ID problems He has hx TA. [facility] Medical History Arthritis Diabetes GERD (gastroesophageal reflux disease) YENNI (obstructive sleep apnea) Iliac artery aneurysm (~2019) Personal history of nicotine dependence Hyperlipidemia Hypertension Tubular adenoma of colon (~2013) Surgical History History of colonoscopy Family History Father Stomach cancer Mother Breast cancer Diabetes HTN (hypertension) Sister Uterine cancer Maternal Grandmother Diabetes HTN (hypertension) Social History Alcohol intake: current Alcohol intake frequency: does not drink Patient Tobacco Use Status: Former Tobacco user Years Smoked: 48 - onset 18yo, 1/2ppd x 48yrs, 24pyh Substance Use Type: Marijuana Review of Systems Const Denies fatigue, Denies fever(s), Denies night sweats, Denies poor appetite and Denies weight loss ENT Reports Normal hearing present, Denies dysphagia, Denies odynophagia, Denies throat swelling and Denies tongue swelling Card Reports no additional complaints Resp Reports no additional complaints GI Details: Denies abdominal pain, Denies melena, Denies bloating, Denies hematochezia, Denies constipation, Denies GI cramping, Denies dysphagia, Denies excessive flatus, Denies early satiety, Denies heartburn, Denies diarrhea, Denies nausea, Denies odynophagia, Denies vomiting and Denies hematemesis Skin/Breast Denies pruritus, Denies lesions, Denies rash and Denies jaundice Neuro Reports Normal hearing present and Denies Abnormal speech present Endo Denies fatigue Aller/Immun Denies throat swelling and Denies tongue swelling Physical Exam Vital Signs: BMI result Body Mass Index 35.2 Const General: cooperative, no acute distress, well developed and well groomed Nutritional Appearance: well nourished and obese Orientation/consciousness: oriented to person, oriented to place and oriented to time Limitations: No language barrier HEENT Head: Yes normocephalic and Yes atraumatic Eyes General: dysmorphic (left eye droop, extensive blue cataract) Pupils: Equal, round and reactive pupils present (rt eye, left eye blind) Neck Neck: Yes normal visual inspection and Yes no lymphadenopathy Thyroid: Thyroid normal Resp Effort & Inspection: normal respiratory effort and able to speak in complete sentences Auscultation: clear to auscultation bilaterally Cardio Rate: regular rate Rhythm: regular rhythm Heart sounds: Normal, physiologic split S2 sound present Peripheral pulses: radial pulses present and posterior tibial pulses present GI Inspection: No distended, No Abdominal panniculus present and Yes obesity Palpation (GI): Soft to palpation, nontender, no guarding, not rigid and No hepatosplenomegaly present Percussion: Yes normal to percussion Auscultation: normal bowel sounds Rectal Exam - Male: Yes deferred Skin General skin exam: no rashes or lesions noted, turgor normal, skin not dry, no jaundice, No spider nevi and no striae Rashes: no rashes Nails: normal Neuro General: oriented to person, oriented to place and oriented to time Cranial nerves: Yes Equal, round and reactive pupils present (rt eye, left eye blind) and Yes Normal hearing present Speech: No Abnormal speech present Extrem General: Yes normal to inspection, No clubbing, No cyanosis and No edema Psych Appearance: grossly normal and well kempt Mental Status: mental status grossly normal Speech and movement: Normal speech and movement present Affect: normal affect Attitude: cooperative Thought process: Normal thought process present and not confabulating Thought content: Normal thought content present Insight: Good insight present (Psych) Judgement: Good judgement present (Psych) Results Reviewed Results Reviewed: 07/24/2403/30/25 09:4516:32WBC 6.5Hgb 10.4 LHct 31.0 LMCV 99.4 HMCH 33.3 HPlt Count 207Estimated GFR 31Total Bilirubin 0.4AST 14ALT < 6Alkaline Phosphatase 87PTH Intact 255.7 H Assessment & Plan Assessment & Plan (1) Tubular adenoma of colon: Onset Date: ~2013 Comment: (TA in 2014 scope, and 2021 scope repeat 2-3 years large pendunculated polyp Code(s): D12.6 - Benign neoplasm of colon, unspecified Category: Medical (2) Pre-op examination: Code(s): Z01.818 - Encounter for other preprocedural examination Category: Medical Plan Last colonoscopy: Ascending Colon: x 1 semi pedunculated polyp 10-12 mm removed with cold snare, x 1 sessile polyp 6-8 mm removed with cold snare, x 1 sessile polyp 4-6 mm removed with cold forceps He says he continues to do well, I assumed his primary is prescribing his Reglan for his gastroparesis. No prior problems with anesthesia or sedation. No cardiac or respiratory problems. No ID problems He has hx TA. Orders: Orders Colonoscopy - GI Use Only 03/29/25 D12.6 - Benign neoplasm of colon, unspecified Medications: New sodium,potassium,mag sulfates 17.5-3.13-1.6 gram (Suprep Bowel Prep Kit) 480 mL orally; FOR COLONOSCOPY PREP 354 mL 0RF Coding Level of Care Code New Pt Level 3 (18756) Diagnoses Tubular adenoma of colon D12.6 Pre-op examination Z01.818
[2025-03-29 15:20] VITALS: BMI 35.2
== END 2025-03-29 15:46 | disposition home or self-care (01) ==
LOC: HO.HGI 14:40
PROVIDERS: PCP Family Medicine; Visit Provider Nurse Practitioner
DX: K31.84 Gastroparesis (principal); Z01.818 Encounter for other preprocedural examination; Z12.11 Encounter for screening for malignant neoplasm of colon; Z86.0101 Personal history of adenomatous and serrated colon polyps
CPT/HCPCS: 99203

== ENCOUNTER → 2025-03-29 14:39 | Outpatient (BNVA) | payer MEDICARE, SELFPAY | PROVIDERS: PCP Family Medicine; Visit Provider Nurse Practitioner | DX: Z01.818 Encounter for other preprocedural examination (principal) | CPT/HCPCS: 99202 ==

== ENCOUNTER 2025-05-15 08:10 | Outpatient (AMB) | payer MEDICARE, SELFPAY ==
[2025-05-15 08:22] VITALS: BP 126/58; PULSE 63; BMI 35.4
--- NOTE | 2025-05-15 08:22 | MHC.OFFVIS ---
Vital Signs 05/15/25 08:22 Height 5 ft 9 in Weight 239 lb 13.807 oz BMI 35.4 BP 126/58 L Blood Pressure Location Lt brachial Position Supine Pulse 63 Pulse Source Monitor Intake Visit Reasons: R D INTERN/Dr. Benitez/Chest pain Intake Note: Senior Pensions Administrator /Dr. Benitez/ Chest pain Field Application Engineer Required: No Accompanied by: Self / Same As Patient Allergies No Known Allergies (No Known Allergies*) Allergy (Verified 05/15/25 08:30) Medication List - Last Reconciled 05/15/25 by Too Jernigan MD allopurinol 300 mg PO DAILY atorvastatin 20 mg PO QAM carvedilol 12.5 mg PO BID doxazosin 4 mg PO DAILY lisinopril-hydrochlorothiazide 10-12.5 mg 1 tab PO QAM metoclopramide HCl (Reglan) 5 mg PO .tidac 30 days [id number] fum-folic ac 7.5 mg iron-400 mcg 1 tab PO QAM pioglitazone 15 mg PO QAM sodium bicarbonate 1,300 mg PO BID sodium,potassium,mag sulfates 17.5-3.13-1.6 gram (Suprep Bowel Prep Kit) 480 mL orally; FOR COLONOSCOPY PREP HPI Comments Details: Thank you for referring Juan Miguel in cardiology consultation today for chest discomfort. He is a pleasant 80-year-old male who had chest pain precordial area about a year ago. He went to urgent care and was told that everything was okay. The pain was very atypical sharp pain that was on and off for few sec. patient since then has not had any significant discomfort. However he is limited in his monitor of activity he can do and he says he does get symptoms of shortness of breath and fatigue when he exercises. He does have symptoms and pain related to right knee arthritis which limits him. He has longstanding history of hypertension, diabetes as well as hyperlipidemia. No prior cardiac history or cardiovascular events. Patient stopped smoking at age of 62. Also stopped drinking alcohol at that time. Generally remains fairly active. Denies any prolonged palpitation irregular heartbeat. Denies any orthopnea, PND, leg edema. No lightheadedness, syncope. No actual exertional chest pain [facility] Medical History Arthritis Diabetes GERD (gastroesophageal reflux disease) YENNI (obstructive sleep apnea) Iliac artery aneurysm (~2019) Personal history of nicotine dependence Hyperlipidemia Hypertension Tubular adenoma of colon (~2013) Surgical History History of colonoscopy Family History Father Stomach cancer Mother Breast cancer Diabetes HTN (hypertension) Sister Uterine cancer Maternal Grandmother Diabetes HTN (hypertension) Social History Alcohol intake: current Alcohol intake frequency: does not drink Patient Tobacco Use Status: Former Tobacco user Years Smoked: 48 - onset 18yo, 1/2ppd x 48yrs, 24pyh Substance Use Type: Marijuana Review of Systems Const Denies daytime sleepiness, Denies difficulty sleeping, Denies snoring, Denies stops breathing during sleep and Denies weakness Card Denies chest pain, Denies rapid heart rate, Denies irregular heart rhythm, Denies claudication, Denies leg edema, Denies lightheadedness, Denies palpitations, Denies dyspnea, Denies dyspnea on exertion, Denies orthopnea, Denies paroxysmal nocturnal dyspnea and Denies slow heart rate Resp Denies cough, Denies dyspnea, Denies dyspnea on exertion and Denies snoring GI Reports no additional complaints, Denies hematochezia, Denies change in stool character and Denies dyspepsia Musc Denies abnormal gait, Denies muscle weakness and Denies numbness Neuro Denies abnormal gait, Denies numbness and Denies weakness Endo Denies palpitations Physical Exam Vital Signs: Last Vital Signs Pulse 63 05/15/25 08:22 BP 126/58 L 05/15/25 08:22 BMI result Body Mass Index 35.4 Const General: cooperative, comfortable, no acute distress, well developed, alert and awake Nutritional Appearance: well nourished and obese Orientation/consciousness: patient oriented x3 Limitations: no limitations HEENT Head: Yes normocephalic and Yes atraumatic Neck Neck: Yes trachea midline, Yes supple and Yes no JVD Resp Effort & Inspection: normal respiratory effort Auscultation: clear to auscultation bilaterally Cardio Jugular venous distension: no JVD Palpation: normal PMI Rate: regular rate Rhythm: regular rhythm Heart sounds: S1 normal heart sound present, S2 normal heart sound present, no click, no gallops and no murmurs GI Auscultation: normal bowel sounds Skin General skin exam: no rashes or lesions noted Neuro General: patient oriented x3 and no focal motor deficits Extrem General: Yes no clubbing, cyanosis or edema Psych Appearance: grossly normal Office Procedures EKG Details: EKG shows normal sinus rhythm with nonspecific ST abnormality [id number], Complete Assessment & Plan Assessment & Plan (1) Short of breath on exertion: Code(s): R06.02 - Shortness of breath Category: Medical Plan: Patient was multiple risk factor including hypertension, diabetes, hyperlipidemia as well as aging and prior smoking with symptoms exertional shortness of breath which could be related to deconditioning due to lack of exercise. Patient symptoms of chest pain have fairly atypical. EKGs shows nonspecific changes. Would further evaluate with a vasodilating myocardial perfusion imaging as well as echocardiogram to evaluate for cardiac structure and function to rule out significant myocardial ischemia that may alter prognosis. This was discussed with him. He understands and agreeable to pursue this testing. His blood pressure is currently very well optimized on current medications. Advised to continue the same. He said he religiously takes all his medications. He also takes his diabetes medications consider switching his pioglitazone to GLP 1 antagonist or SGLT2 inhibitor therapy. Also continue statin therapy with target goal LDL at least less than 100 mg/dL. Will follow up in the clinic if need be. Thank you for allowing me to partake in his care Coding Level of Care Code New Pt Level 4 (97386) Complex EM visit Add On G2211 Diagnoses Short of breath on exertion R06.02 CPT Codes EKG - CPT: 40899-[id number], Complete ([id number])
--- OUTSIDE RECORDS SUMMARY | 2025-05-15 09:04 | XMS_ITS | Encounter Summary ---
Author Organization [employer] Address [address] [place] [address] [address] [place] [address] Care Team Providers Care Student Ministry Pastor Name Role Phone Viktoriya Santillan DO Primary Care Provider [phone] Reason for Visit * Reason Onset Date Comments Medication Question 09/19/2024 Encounter Details Date Type Department Care Team ([facility] st Contact Info) Description 09/19/2024 Telephone [facility] MEDICINE [address] [place], [place] [phone] Viktoriya Santillan DO [address], [place] [phone] Medication Question Social History Tobacco Use Types Packs/Day Years Used Date Smoking Tobacco: Former Cigarettes Q uit: 2012 Passive Smoke Exposure: Past Smokeless Tobacco: Never Alcohol Use Standard Drinks/Week Comments Never 0 (1 standard drink = 0.6 oz pur e alcohol) Depression Answer Date Recorded Patient Health Questionnaire-9 Score 3 09/15/2022 Housing Stability Answer Date Recorded What is your housing situation today? I have karolyn marquez 07/12/[address] you li ve. Do you have problems with any of the following? None of the above 07/12/2024 Food Insecurity Answer Date Recorded Within the past 12 months, y ou worried that your food would run out before you got money to buy more: Never True 07/12/2024 Within the past 12 months,th e food you bought just didn't last and you didn't have enough money to get more: Never True Transportation Answer Date Recorded In the past 12 months, has l ack of transportation kept you from medical appts, meetings, work or from getting things needed for daily living? No 07/12/2024 Utilities Answer Date Recorded In the past 12 months, has t he electric, gas, oil or water company threatened to shut off services in your home? No 07/12/2024 Depression Answer Date Recorded Patient Health Questionnaire-2 Score 0 09/15/2022 Internet Access Answer Date Recorded Internet Access Q1 No 07/12/2024 Internet Access Q2 I do not want or need it 06/29 Sex and Gender Information Value Date Recorded Sex Assigned at Male 06/28/2022 10:16 AM EDT Legal Sex Male 10:16 AM EDT Gender Identity Male 06/28/2022 10:16 AM EDT Sexual Orientation Straight 06/28/2022 10 :16 AM EDT documented as of this encounter Miscellaneous Notes * Telephone Encounter - Yessy Akhtar RN - 09/19/2024 12:23 PM EST TC returned to [facility] [phone] in regards to below message. RN was informed she is affiliated with [employer] and performs yearly home visits and they complete orthostatics routinely at their visits. Rosibel reports the patient was asymptomatic and had not taken hs BP meds yet today. RN spoke to PCP who reports current plan is to continue BP medication regimen and have the patient check BP at home routinely and if BP continues to be low or patient becomes symptomatic-patient should be evaluated in WIC or ED depending on s/s. TC placed to patient [phone] in regards to above message. Patient verbalized understanding butreports he does not have a BP machine at home. RN will pend BP machine to pharmacy. Patient advisedto continue current BP medication regimen and to notify [facility] if BP continues to remain low or if patient becomes symptomatic. Patient verbalized understanding. Patient to f/u PRN. * Telephone Encounter - Jake Armstrong - 09/19/2024 8:59 AM EST Tc from [facility] stating that she took his BP reading sitting (109/72) and Standing (93/72). Rosibel states that pt does have BP medication but Nurse states that she wanted someone from his care team to see if they can assist pt further because she was scared that pt bp will drop when medicationis administered. documented in this encounter Plan of Treatment Not on file documented as of this encounter Visit Diagnoses Not on filedocumented in this encounter Additional Health Concerns Assessment Noted Time PHQ-9 Depression Total Score: 3 09/15/19 23 9:37 AM EST documented as of this encounter Care Teams Student Ministry Pastor Relationship Specialty Start Date End Date Viktoriya Santillan DO [address] [place] [id number] PCP - General Family Medicine 02/08/20 documented as of this encounter
--- OUTSIDE RECORDS SUMMARY | 2025-05-15 09:04 | XMS_ITS | Clinical Summary ---
Author Organization [address] [place] [address] Address [address] [place] [address] Phone Care Team Providers Care Corporate Real Estate Specialist Name Role Phone Viktoriya Santillan Primary Care Provider [phone] Allergies No known active allergies Medications loratadine 10 mg capsule Take 1 Capsule by mouth daily. Active pioglitazone (ACTOS) 15 mg tablet Take 1 Tablet by mouth daily. Active metoclopramide HCl (REGLAN ORAL) Take 5 mg by mouth 3 times daily. 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 Cataract 06/07/2024 Chronic kidney disease, stag e 4 (severe) ([facility] V24, [facility] V28) 06/07/2024 Hyperlipidemia 06/07/2024 Hypertensive retinopathy 06/07/2024 Localized primary osteoarthritis 06/07/2024 Obesity 06/07/2024 YENNI (obstructive sleep apnea) 06/07/2024 Retinal vascular occlusion 06/07/2024 T2DM (type 2 diabetes mellitus) ([facility] V24, [facility] /[facility] V28) 06/07/2024 Tobacco dependence syndrome 06/07/2024 Tubular [...] (uACR) 06/08/2024 06/10/1998 Falls Risk Assessment 06/08/2024 Medicare Annual Wellness Visit 06/08/2024 Social Influencers of Health Screening 06/08/2024 Hypertension/CHF/CAD Annual BMP Blood Test 07/23/2024 06/10/1998 Diabetes: Blood Sugar Control Test (HGBA1C) 08/24/2024 02/23/2024, 01/30/2021 Depression Screening 08/29/2024 COVID-19 Vaccine (8 - Mixed Product risk season) 2025 06/08/2024, 10/03/2023, 09/16/2022, Additional history exists Influenza [...] Ratio (06/10/1998) Urine Albumin Creatinine Ratio Abstracted [facility] Provider HEALTH MAINTENANCE Final Result * Annual BMP Blood Test (06/10/1998) Annual BMP Blood Test Abstracted Historical Provider HEALTH MAINTENANCE Final Result from Last 3 Months or Most Recently Relevant to Health Maintenance Insurance , [place] [address] [employer] MEDICARE ADVANTAGE MEDICAID - [place] Care Teams Corporate Real Estate Specialist Relationship Specialty Start Date End Date Viktoriya Santillan DO [address] [place] [address] PCP - General 03/13/24
--- OUTSIDE RECORDS SUMMARY | 2025-05-15 09:04 | XMS_ITS | Encounter Summary ---
Author Organization [employer] Address [address] [place] [address] [address] [place] [address] Care Team Providers Care Windows Admin Name Role Phone Viktoriya Santillan DO Primary Care Provider + [phone] Reason for Visit * Reason Comments Med Refill Encounter Details Date Type Department Care Team ([facility] st Contact Info) Description 05/07/[address] [facility]INE [address] [place], [place] [phone] Viktoriya Santillan DO [address] [place], [place] [phone] Social History Tobacco Use Types Packs/Day Years [...] housing situation today? I have karolyn marquez 07/07/[address] you li ve. Do you have problems with any of the following? None of the above 07/07/2023 Food Insecurity Answer Date Recorded Within the past 12 months, y ou worried that your food would run out before you got money to buy more: Never True 07/07/2023 Within the past 12 months,th e food you bought just didn't last and you didn't have enough money to get more: Never True 04/2023 Transportation Answer Date Recorded In the past 12 months, has l ack of transportation kept you from medical appts, meetings, work or from getting things needed for daily living? No 07/07/2023 Utilities Answer Date Recorded In the past 12 months, has t he electric, gas, oil or water company threatened to shut off services in your home? No 07/07/2023 Depression Answer Date Recorded Patient Health Questionnaire-2 Score 0 09/15/2022 Sex and Gender Information Value Date Recorded Sex Assigned at Male 06/28/2022 10:16 AM EDT Legal Sex Male 10:16 AM EDT Gender Identity Male 06/28/2022 10:16 AM EDT Sexual Orientation Straight 06/28/2022 10 :16 AM EDT documented as of this encounter Plan of Treatment Not on file documented as of this encounter Visit Diagnoses Not on filedocumented in this encounter Additional Health Concerns Assessment Noted Time PHQ-9 Depression Total Score: 3 09/15/19 23 9:37 AM EST documented as of this encounter Care Teams Windows Admin Relationship Specialty Start Date End Date Viktoriya Santillan DO [address] [place] [address] PCP - General Family Medicine 02/08/20 documented as of this encounter
--- OUTSIDE RECORDS SUMMARY | 2025-05-15 09:04 | XMS_ITS | Encounter Summary ---
Author Organization [facility] Address [address] [place] [address] Phone Care Team Providers Care Air Valve Repairer Name Role Phone Viktoriya Santillan DO Primary Care Provider Unava ilable Reason for Visit * Reason Comments Med Refill Encounter Details Date Type Department Care Team (Late Contact Info) Description 02/07/2024 Refill [facility] [address] [place] [address] Timbo Murillo MD [address] [facility] [place] [address] Social History Tobacco Use Types Packs/Day Years Used Date Smoking Tobacco: Some Days Cigarettes Started: 01/09/2018 Sex and Gender Information Value Date Recorded Sex Assigned at Not on file Legal Sex Male 4:34 PM EST Gender Identity Not on file Sexual Orientation Not on file documented as of this encounter Plan of Treatment Upcoming Encounters Date Type Department Care Team (Late Contact Info) Description 07/05/2025 2:15 PM EST Office Visit [facility] [place], [address] [facility] [place] [phone] Timbo Murillo MD [address] [facility] [place] [address] documented as of this encounter Visit Diagnoses Not on filedocumented in this encounter Care Teams Air Valve Repairer Relationship Specialty Start Date End Date Viktoriya Santillan DO [address] [place] [address] PCP - General Family Medicine 07/24/24 documented as of this encounter
--- OUTSIDE RECORDS SUMMARY | 2025-05-15 09:04 | XMS_ITS | Clinical Summary ---
Author Organization [facility] [place], Address [address] [place] [address] [place] [address] Phone Care Team Providers Care Tin Roofer Name Role Phone Viktoriya Santillan DO Primary Care Provider Unava ilable Allergies No known active allergies Medications lisinopril-hydro CHLOROthiazide (PRINZIDE,ZESTOR ETIC) 20-12.5 MG per tablet Take 2 tablets by mouth 1 (one) time each day 60 tablet 11 12/10/2019 Active carvedilol (COREG) 12.5 MG tablet TAKE 1 TABLET TWICE DAILY IN THE MORNING AND IN THE EVENING WITH FOOD 10/05/2019 Active atorvastatin (LIPITOR) 20 MG tablet Take 20 mg by mouth 11/05/2019 Active ASPIRIN 81 PO Take 1 tablet by mouth 1 (one) time each day Active colchicine 0.6 MG tablet Take 1 tablet by mouth 2 (two) times a day Active Multiple Vitamins-Mineral s (MULTIVITAMIN WITH MINERALS) tablet Take 1 tablet by mouth every morning 11/05/2019 Active metoclopramide (REGLAN) 5 MG tablet 11/26/2020 Active lisinopril (PRINIVIL,ZESTRI L) 20 MG tablet Take 1 tablet by mouth 1 (one) time each day Active amLODIPine (NORVASC) 10 MG tablet Take 1 tablet by mouth 1 (one) time each day Active atorvastatin (LIPITOR) 40 MG tablet Take 40 mg by mouth 08/16/2022 Active cilostazol (PLETAL) 100 MG tablet Take 100 mg by mouth every morning and evening 09/20/2022 Active loratadine (CLARITIN) 10 MG tablet Take 10 mg by mouth 09/10/2022 Active doxazosin (CARDURA) 4 MG tablet Take 1 tablet (4 mg total) by mouth at bed time 30 tablet 11 11/07/2023 Active pioglitazone (ACTOS) 15 MG tablet TAKE 1 TABLET BY MOUTH EVERY MORNING 90 tablet 3 01/04/2025 Active allopurinol (ZYLOPRIM) 300 MG tablet TAKE 1 TABLET BY MOUTH EVERY MORNING 90 tablet 3 01/24/2025 Active sodium bicarbonate 650 MG tablet TAKE 2 TABLETS BY MOUTH TWICE DAILY IN THE MORNING AND EVENING 360 tablet 3 01/24/2025 Active Active Problems Problem Noted Date Diagnosed Date Chronic kidney disease due to hypertension 12/09 Chronic kidney disease stage 3 12/10/2019 Essential hypertension 12/10/2019 Serum creatinine above reference range 0 Immunizations Immunization Administration Dates Next Due Pneumococcal, Unspecified 05/24/2012 Zoster 06/05/2019,03/08/2019 Family History Medical History Relation Comments Hypertension Sibling sisters Relation Status Comments Sibling Social History Tobacco Use Types Packs/Day Years Used Date Smoking Tobacco: Some Days Cigarettes Started: 01/09/2018 Sex and Gender Information Value Date Recorded Sex Assigned at Not on file Legal Sex Male 4:34 PM EST Gender Identity Not on file Sexual Orientation Not on file Last Filed Vital Signs Vital Sign Reading Time Taken Comments Blood Pressure 116/74 01/14/2025 10:21 AM EDT Pulse - - Temperature - - Respiratory Rate 22 01/09/2018 12:00 PM EDT Oxygen Saturation - - Inhaled Oxygen Concentration - - Weight 107 kg (235 lb) 01/30/2021 3:47 PM EDT Height 175.3 cm (5' 9 ) 07/23/2019 12:00 PM EST Body Mass Index 34.7 07/23/2019 12:00 PM EST Plan of Treatment Upcoming Encounters Date Type Department Care Team (Late st Contact Info) Description 07/05/2025 2:15 PM EST Office Visit [facility] [place], [address] [facility] [place] [address] Timbo Murillo MD [address] [facility] [place] [address] Health Maintenance Due Date Last Done Comments Pneumococcal Vaccine: 50+ Years (2 of 2 - PPSV23, PCV20, or PCV21) 04/08/2021 02/11/2021, 05/24/2012, 05/24/2012 Diabetes: Ophthalmology Exam 09/03/2022 Diabetes: Pedal Pulse Checked 09/03/2022 Diabetes: Sensory Foot Exam 09/03/2022 Diabetes: Visual Foot Exam 09/03/2022 Diabetes: Hemoglobin A1C 10/24/2024 024, 02/23/2024, 08/10/2023, Additional history exists Influenza Vaccine (#1) 2025 Pneumococcal Vaccine: Peds (0 to 5 Years) and At-Risk Patients (6 to 49 Years) Discontinued 02/11/2021, 05/24/2012, 05/24/2012 Hepatitis B Vaccine Aged Out 06/11/2021, 02/11/2021, 05/24/2012 No longer eligible based on patient's age to complete this topic Procedures Procedure Name Priority Date/Time Associated Diagnosis Comments HEMOGLOBIN A1C Routine 01/30/2021 4:08 PM EDT 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 DIAGNOSTIC USE: The [place] Diabetes Association (ADA) and the World Health Organization (WHO) recommend the use of HbA1c to diagnose diabetes using a threshold of 6.5%. Patients who have an HbA1c between 5.7% and 6.4% are considered at increased risk for developing diabetes in the future. CAUTION: Falsely low HbA1c results may be observed in patients with hemolytic anemia, homozygous forms of abnormal hemoglobin (e.g. SS, CC, SC), , recent blood loss or hemoglobin F greater than 7%. Fructosamine may be used as an alternate test in these cases. REFERENCE: ADA: Standards of Medical Care in Diabetes 2020, The Journal of Clinical and Applied Research and Education Volume 43, Supplement 1 Testing performed or reported by [facility], a Service of [facility], [address] [place] [id number] Kimberly Daniels MD, [employer] Blood specimen (specimen) Venous blood / Unknown 01/30/2021 4:08 PM EDT 01/30/2021 4:13 PM EDT Timbo Murillo MD LAB BLOOD ORDERABLES Final Result [facility] from Last 3 Months or Most Recently Relevant to Health Maintenance Insurance [place] Medicare Care Teams Tin Roofer Relationship Specialty Start Date End Date Viktoriya Santillan DO [address] [place] [address] PCP - General Family Medicine 07/24/24
--- OUTSIDE RECORDS SUMMARY | 2025-05-15 09:04 | XMS_ITS | Encounter Summary ---
Author Organization [facility] Address [address] [place] [address] Phone Care Team Providers Care Cable Television Program Director Name Role Phone Viktoriya Santillan DO Primary Care Provider Unava ilable Reason for Visit * Reason Comments Med Refill Encounter Details Date Type Department Care Team (Late Contact Info) Description 11/09/2023 Refill [facility] [address] [place] [address] Timbo Muirllo MD [address] [facility] [place] [address] Social History Tobacco Use Types [...] Visit [facility] [place], [address] [facility] [place] [phone] Timbo Murillo MD [address] [facility] [place] [address] documented as of this encounter Visit Diagnoses Not on filedocumented in this encounter Care Teams Cable Television Program Director Relationship Specialty Start Date End Date Viktoriya Santillan DO [address] [place] [address] PCP - General Family Medicine 07/24/24 documented as of this encounter
--- OUTSIDE RECORDS SUMMARY | 2025-05-15 09:04 | XMS_ITS | Encounter Summary ---
Author Organization [facility] Address [address] [place] [address] Phone Care Team Providers Care [id number] Tank Driver Name Role Phone Viktoriya Santillan DO Primary Care Provider Unava ilable Encounter Details Date Type Department Care Team (Late st Contact Info) Description 08/31/2022 Documentation Only [facility] [address] [place] [address] Timbo Murillo MD [address] [facility] [place] [address] Social History Tobacco Use Types [...] Visit [facility] [address] [place] [address] Timbo Murillo MD [address] [facility] [place] [address] documented as of this encounter Visit Diagnoses Not on filedocumented in this encounter Care Teams [id number] Tank Driver Relationship Specialty Start Date End Date Viktoriya Santillan DO [address] [place] [address] PCP - General Family Medicine 07/24/24 documented as of this encounter
--- OUTSIDE RECORDS SUMMARY | 2025-05-15 09:04 | XMS_ITS | Clinical Summary ---
Author Organization [email or web address] Address [address] [place] [address] 7[address] [place] [address] Care Team Providers Care Child Protection Specialist Name Role Phone TyrellViktoriya Primary Care Provider [phone] Allergies No known active allergies Medications allopurinol (Zyloprim) 300 MG tablet Take 1 tablet by mouth in the morning. 2 Active doxazosin (Cardura) 4 MG tablet Take 1 tablet by mouth at bed time. 2 Active metoclopramide (Reglan) 5 MG tablet Take 1 tablet by mouth 3 times daily. 1 Active pioglitazone (Actos) 15 MG tablet Take 1 tablet by mouth in the morning. 2 Active sodium bicarbonate 650 MG tablet Take 2 tablets by mouth 2 times daily. 2 Active cilostazol (Pletal) 100 MG tablet TAKE 1 TABLET BY MOUTH TWICE DAILY IN THE MORNING AND IN THE EVENING 2 Active loratadine (Claritin) 10 MG tabletIndication s:Seasonal allergic rhinitis, unspecified trigger TAKE 1 TABLET BY MOUTH EVERY MORNING 90 tablet 3 3 Active acetaminophen (Tylenol 8 Hour) 650 MG ER tablet TAKE 1 TABLET BY MOUTH EVERY 8 HOURS NEEDED FOR PAIN, DO NOT BREAK, CRUSH, DISSOLVE OR CHEW 60 tablet 1 4 Active Multiple Vitamins-Mineral s (multivitamin with minerals) tablet TAKE 1 TABLET BY MOUTH EVERY MORNING 90 tablet 3 4 Active lidocaine (Lidoderm) 5 % patchIndications :Chronic knee pain, unspecified laterality Apply 2 patches topically if needed each day for mild pain. Remove & discard patch within 12 hours or as directed by . 60 patch 5 4 Active atorvastatin (Lipitor) 40 MG tablet Take 1 tablet (40 mg) by mouth in the morning. 90 tablet 3 4 Active Diclofenac Sodium 1 % gel APPLY 2 GRAMS TO AFFECTED AREA(S) 4 TIMES A DAY IN THE MORNING, AT NOON, IN THE EVENING, AND AT BEDTIME FOR PAIN 100 g 5 Active Blood Pressure kit 1 each 1 (one) time per week. 1 kit 5 Active lisinopril-hydro CHLOROthiazide 10-12.5 MG tablet TAKE 1 TABLET BY MOUTH EVERY MORNING 90 tablet 3 5 Active carvedilol (Coreg) 12.5 MG tablet TAKE 1 TABLET BY MOUTH TWICE DAILY IN THE MORNING AND IN THE EVENING 180 tablet 3 5 Active Active Problems Problem Noted Date Diagnosed Date Blindness of left eye 07/24/2024 Gastroparesis 07/24/2024 Chronic knee pain 07/24/2024 Healthcare maintenance 07/24/2024 Hyperlipidemia 09/15/2022 CKD (chronic kidney disease), stage IV 3 Essential hypertension 12/10/2019 Type 2 diabetes mellitus 04/29/2016 Tubular adenoma 09/14/2013 Hypertensive retinopathy 08/02/2012 Gout 05/30/2012 Retinal vascular occlusion 03/28/2012 BMI 32.0-32.9,adult 01/26/2012 Tobacco dependence 01/26/2012 Generalized osteoarthritis 12/20/2011 Obstructive sleep apnea 01/18/2011 Cataract 03/28/2010 Resolved Problems Problem Noted Date Diagnosed Date Resolved Date Stage 3 chronic kidney disease 12/10/2019 07/24/2024 Encounters Date Type Department Care Team Description 02/24/2025 Refill [facility] [address] [place] [phone] Viktoriya Santillan DO from Last 3 Months Immunizations Immunization Administration Dates Next Due Hep A, Adult 05/24/2012 Hep B, adult 06/11/2021,02/11/2021,05/24/2012 Pfizer Covid-19 Vaccine 12+ 06/08/2024, 4 Pfizer Covid-19 Vaccine 12+ Bivalent 09/16/2022 Pfizer Covid-19 Vaccine 12+ paula-sucrose (Parks Cap) 01/03/2022 Pneumococcal Conjugate PCV 13 02/11/2021 Pneumococcal Polysaccharide PPSV23 05/24/2012 Pneumococcal, Unspecified 05/24/2012 RSV Bivalent 05/29/2024 TD (adult), 2 Lf tetanus tox oid, preservative free, adsorbed 03/30/2022,01/26/2006 Tdap 03/28/2012 Zoster, Recombinant 06/05/2019,03/08/2019 Social History Tobacco Use Types Packs/Day Years Used Date Smoking Tobacco: Former Cigarettes Q uit: 2011 Passive Smoke Exposure: Past Smokeless Tobacco: Never Tobacco Cessation:Counseling Given: Not Answered Alcohol Use Standard Drinks/Week Comments Never 0 [...] Orientation Straight 06/28/2022 10 :16 AM EDT Last Filed Vital Signs Vital Sign Reading Time Taken Comments Blood Pressure 124/70 02/11/2025 1:28 PM EDT Pulse 76 02/11/2025 1:28 PM EDT Temperature 36.8 C (98.3 F) 02/11/2025 1:28 PM EDT Respiratory Rate 20 02/11/2025 1:28 PM EDT Oxygen Saturation 98% 11/09/2024 8:44 AM EDT Inhaled Oxygen Concentration - - Weight 107 kg (235 lb 9.6 oz) 02/11/2025 1:28 PM EDT Height 175.3 cm (5' 9 ) 02/11/2025 1:28 PM EDT Body Mass Index 34.79 02/11/2025 1:28 PM EDT Plan of Treatment Health Maintenance Due Date Last Done Comments Eye Exam 1955 Alcohol/Substance Use Screening 1957 Depression Screening 09/15/2023 09/15/2022, 09/15/19 23 Diabetes: Foot Exam 02/21/2025 02/22/2024, 02/22/2024, 02/22/2024, Additional history exists Lipid Panel 02/22/2025 02/23/2024, 0808/2021, 06/19/2021, Additional history exists COVID-19 Vaccine ( season) 2025 06/08/2024, 10/03/2023, 09/16/2022, Additional history exists Influenza Vaccine (#1) 2025 SDOH Screening 07/12/2025 07/12/2024 Diabetes: Hemoglobin A1C 08/13/2025 025, 07/24/2024, 02/23/2024, Additional history exists Tobacco Screening 02/11/2026 02/11/2025 DTaP/Tdap/Td Vaccines (3 - Td or Tdap) 03/30/2032 03/30/2022, 03/28/2012, 01/26/2006 Hepatitis A Vaccines Aged Out 05/24/2012 No long er eligible based on patient's age to complete this topic Zoster Vaccines Completed 06/05/2019, 03/08/2019 Pneumococcal Vaccine: 50+ Years Completed 02/11/2021, 05/24/2012, 05/24/2012 Hepatitis B Vaccines Completed 06/11/2021, 02/11/2021, 05/24/2012 RSV Patients and Patients Aged 60 years or older Completed 05/29/2024 HIB Vaccines Aged Out No [...] patient's age to complete this topic Meningococcal Vaccine Aged Out No jose antonio pedro eligible based on patient's age to complete this topic RSV under 20 months Aged Out No longe r eligible based on patient's age to complete this topic Rotavirus Vaccines Aged Out No longer eligible based on patient's age to complete this topic Procedures Procedure Name Priority Date/Time Associated Diagnosis Comments POCT GLYCATED HEMOGLOBIN, TOTAL Routine 02/11/2025 1:30 PM EDT Type 2 diabetes mellitus with stage 4 chronic kidney disease, without long-term current use of insulin ([facility]) LIPID PANEL, STANDARD Routine 02/23/2024 8:40 AM EDT Type 2 diabetes mellitus with stage 4 chronic kidney disease, without long-term current use of insulin ([facility]) Essential hypertension from Last 3 Months or Most Recently Relevant to Health Maintenance Results * POCT HGB A1C (02/11/2025 1:30 PM EDT) Hemoglobin A1C 5.8 4.0 - 6.0 % Blood 02/11/2025 1:30 PM EDT Viktoriya Santillan DO POINT OF CARE TEST ENTER/ROBERTO T ORDERABLES Final Result * (ABNORMAL) Lipid Panel, Standard (02/23/2024 8:40 AM EDT) Triglycerides 87 <150 mg/dL [facility] Comment:Desirable Triglyceri de: less than 150 mg/dLBorderline High Triglyceride 150-199 mg/dLHigh Triglyceride: 200-499 mg/dLVery High Triglyceride: greater than or equal to 5OO mg/dL Cholesterol 160 <200 mg/dL [facility] Comment:Desirable Cholestero l: less than 200 mg/dLBorderline High Cholesterol: 200-239 mg/dLHigh Cholesterol: greater than 239 mg/dL LDL Cholesterol Calculated 102(H) <100 mg/dL [facility] Comment:Desirable LDL: less than 100 mg/dLNear Optimal/Above Optimal LDL: 110- 129 mg/dLBorderline High LDL: 130-159 mg/dLHigh LDL: 160-189 mg/dLVery High LDL: greater than or equal to 190 mg/dL HDL Cholesterol 41 >40 mg/dL [facility] Comment:Desirable HDL: great er than 40 mg/dL Note: This HDL assay may give artificially low results in patients with liver disease. Blood Venous blood specimen / Unknown 02/23/2024 8:40 AM EDT 02/23/2024 11:17 AM EDT Viktoriya Santillan DO LAB BLOOD ORDERABLES Final R esult [facility] [address] [place] [address] [phone] from Last 3 Months or Most Recently Relevant to Health Maintenance Insurance [place] [address] [place] [id number] [facility] [place] [facility] [employer]ETNA MEDICARE REPLACEMENT Care Teams Child Protection Specialist Relationship Specialty Start Date End Date Viktoriya Santillan DO [address] [place] [address] PCP - General Family Medicine 02/08/20
--- OUTSIDE RECORDS SUMMARY | 2025-05-15 09:04 | XMS_ITS | Encounter Summary ---
Author Organization [facility] Address [address] [place] [phone] Phone Care Team Providers Care Multi Media Specialist Name Role Phone Viktoriya Santillan DO Primary Care Provider Unava ilable Encounter Details Date Type Department Care Team (Late st Contact Info) Description 07/25/2024 Documentation Only [facility] [address] [place] [address] [place] [address] [place] [phone] Social History Tobacco Use Types Packs/Day Years [...] Visit [facility] [address] [place] [address] Timbo Murillo MD [address] [facility] [place] [address] documented as of this encounter Visit Diagnoses Not on filedocumented in this encounter Care Teams Multi Media Specialist Relationship Specialty Start Date End Date Viktoriya Santillan DO [address] [place] [phone] PCP - General Family Medicine 07/24/24 documented as of this encounter
--- OUTSIDE RECORDS SUMMARY | 2025-05-15 09:04 | XMS_ITS | Encounter Summary ---
Author Organization [facility] Address [address] [place] [address] Phone Care Team Providers Care Cpc Name Role Phone Viktoriya Santillan DO Primary Care Provider Unava ilable Encounter Details Date Type Department Care Team (Late st Contact Info) Description 09/02/2021 Documentation Only [facility] [address] [place] [address] Timbo Murillo MD [address] [facility] [place] [address] Social History Tobacco Use Types [...] Visit [facility] [address] [place] [address] Timbo Murillo MD [address] [facility] [place] [address] documented as of this encounter Visit Diagnoses Not on filedocumented in this encounter Care Teams Cpc Relationship Specialty Start Date End Date Viktoriya Santillan DO [address] [place] [address] PCP - General Family Medicine 07/24/24 documented as of this encounter
== END 2025-05-15 08:52 | disposition home or self-care (01) ==
LOC: HO.HCS 08:11
PROVIDERS: PCP Family Medicine; Visit Provider Internal Medicine Cardiovascular Disease
DX: R06.02 Shortness of breath (principal)
CPT/HCPCS: 93010; 99204; G2211

== ENCOUNTER → 2025-05-15 08:10 | Outpatient (BNVA) | payer MEDICARE, SELFPAY | PROVIDERS: PCP Family Medicine; Visit Provider Internal Medicine Cardiovascular Disease | DX: R06.02 Shortness of breath (principal); R94.31 Abnormal electrocardiogram [ECG] [EKG] | CPT/HCPCS: 93005; 99202 ==

== ENCOUNTER 2025-07-18 08:33 | Outpatient (REF) | payer MEDICARE, SELFPAY ==
--- OUTSIDE RECORDS SUMMARY | 2025-07-18 09:42 | XMS_ITS | Encounter Summary ---
Author Organization [employer] Address [address] [place] [address] 7[address] [place] [address] Care Team Providers Care Reprint Sorter Name Role Phone Viktoriya Santillan DO Primary Care Provider + [phone] Reason for Visit * Reason Onset Date Comments Medication Question 09/19/2024 Encounter Details Date Type Department Care Team ([facility] st Contact Info) Description 09/19/[address] [facility] MEDICINE [address] [place], [place] [phone] Viktoriya Santillan DO [address] [place], [place] [phone] Medication Question Social History Tobacco Use Types [...] 12:23 PM EST TC returned to [place] [phone] in regards to below message. RN was informed she is affiliated with [employer] and performs yearly home visits and they [...] depending on s/s. TC placed to patient [phone] in regards to above message. Patient verbalized understanding butreports he does not have a BP machine at home. RN will pend BP machine to pharmacy. Patient advisedto continue current BP medication regimen and to notify [facility] if BP continues to remain low or if patient becomes symptomatic. Patient verbalized understanding. Patient to f/u PRN. * Telephone Encounter - Jake Armstrong - 09/19/2024 8:59 AM EST Tc from [facility] stating that she took his BP [...] documented as of this encounter Care Teams Reprint Sorter Relationship Specialty Start Date End Date Viktoriya Santillan DO [address] [place] [address] PCP - General Family Medicine 02/08/20 documented as of this encounter
--- OUTSIDE RECORDS SUMMARY | 2025-07-18 09:42 | XMS_ITS | Encounter Summary ---
Author Organization [employer] Address [address] [place] [address] 7t [place] [address] Care Team Providers Care Refinery Operator Gas Plant Name Role Phone Viktoriya Santillan DO Primary Care Provider + [phone] Reason for Visit * Reason Comments Med Refill Encounter Details Date Type Department Care Team ([facility] st Contact Info) Description 05/07/2024 Refill [facility] MEDICINE [address] [place], [place] [phone] Viktoriya Santillan DO [address] [place], [place] [phone] Social History Tobacco Use Types Packs/Day Years [...] documented as of this encounter Care Teams Refinery Operator [employer] Plant Relationship Specialty Start Date End Date Viktoriya Santillan DO [address] [place] [address] PCP - General Family Medicine 02/08/20 documented as of this encounter
--- OUTSIDE RECORDS SUMMARY | 2025-07-18 09:42 | XMS_ITS | Clinical Summary ---
Author Organization [facility] [place], Address [address] [place] [address] [place] [address] Phone Care Team Providers Care Senior Copywriter Name Role Phone Viktoriya Santillan DO Primary [...] 12/10/2019 Serum creatinine above reference range 0 Encounters Date Type Department Care Team Description 07/05/2025 2:15 PM EST Office Visit [facility] [address] [place] [address] Timbo Murillo MD Chronic kidney disease, stage 4 (severe) (HCC) (Primary Dx); Hypertension; Type 2 diabetes mellitus with diabetic chronic kidney disease, 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); Iron deficiency anemia, not otherwise specified 06/18/2025 Orders Only [facility] [address] [place] [address] Chantelle Lara MA Stage 3b chronic kidney disease (HCC) (Primary Dx); Other iron deficiency anemia; Type 2 diabetes mellitus with diabetic chronic kidney disease, without medication use (HCC); Hypertension; Anemia in chronic kidney disease; Albuminuria, not otherwise specified from Last 3 Months Immunizations Immunization Administration Dates Next Due Pneumococcal, Unspecified 05/24/2012 Zoster 06/05/2019,03/08/2019 Family History Medical History Relation Comments Hypertension Sibling sisters Relation Status Comments Sibling Social History Tobacco Use Types Packs/Day Years Used Date Smoking Tobacco: Some Days Cigarettes 7.5 Started: 01/09/2018 Sex and Gender Information Value [...] Care Team (Late st Contact Info) Description 12/27/2025 2:15 PM EDT Office Visit [facility] [place], [address] [facility] [place] [address] Timbo Murillo MD [address] [facility] [place] [address] Health Maintenance Due Date Last Done Comments Pneumococcal Vaccine: 50+ Years (2 of 2 - PPSV23, PCV20, or PCV21) 04/08/2021 02/11/2021, 05/24/2012, 05/24/2012 Diabetes: Ophthalmology Exam 09/03/2022 Diabetes: Pedal Pulse Checked 09/03/2022 Diabetes: Sensory Foot Exam 09/03/2022 Diabetes: Visual Foot Exam 09/03/2022 Influenza Vaccine (#1) 2025 Diabetes: Hemoglobin A1C 05/14/2025 025, 07/24/2024, 02/23/2024, Additional history exists Pneumococcal Vaccine: Peds (0 to 5 Years) [...] PM EDT) Hemoglobin A1C 6.0(H) (4.0-5.6) % [facility] Comment: MONITORING: In known diabetic patients, hemoglobin A1c targets should be discussed with health care provider. DIAGNOSTIC USE: The [place] Diabetes Association (ADA) and the World Health [...] Supplement 1 Testing performed or reported by [facility], a Service of [facility], [address] [place] [id number] Kimberly Daniels MD, Motorcoach Operator Blood specimen (specimen) Venous blood / Unknown 01/30/2021 4:08 PM EDT 01/30/2021 4:13 PM EDT Timbo Murillo MD LAB BLOOD ORDERABLES Final Result [facility] from Last 3 Months or Most Recently Relevant to Health Maintenance Insurance [place] [employer] Medicare Care Teams Senior Copywriter Relationship Specialty Start Date End Date Viktoriya Santillan DO [address] [place] [address] PCP - General Family Medicine 07/24/24
--- OUTSIDE RECORDS SUMMARY | 2025-07-18 09:42 | XMS_ITS | Encounter Summary ---
Author Organization [facility] [place], Address [address] [place] [address] Phone Care Team Providers Care Medical Reimbursement Manager Name Role Phone Viktoriya Santillan DO Primary Care Provider Unava ilable Reason for Visit * Reason Comments Med Refill Encounter Details Date Type Department Care Team (Late st Contact Info) Description 11/09/2023 Refill [facility] [address] [place] [address] Timbo Murillo MD [address] [place] [address] [place] [address] Social History Tobacco Use Types [...] Department Care Team (Late Contact Info) Description 12/27/2025 2:15 PM EDT Office Visit [facility], [address] [facility] [place] [address] Timbo Murillo MD [address] [facility] [place] [address] documented as of this encounter Visit Diagnoses Not on filedocumented in this encounter Care Teams Medical Reimbursement Manager Relationship Specialty Start Date End Date Viktoriya Santillan DO [address] [place] [id number] PCP - General Family Medicine 07/24/24 documented as of this encounter
--- OUTSIDE RECORDS SUMMARY | 2025-07-18 09:42 | XMS_ITS | Encounter Summary ---
Author Organization [facility] Address [address] [place] [address] Phone Care Team Providers Care Peer Specialist Name Role Phone Viktoriya Santillan DO Primary Care Provider Unava ilable Encounter Details Date Type Department Care Team (Late st Contact Info) Description 07/25/2024 Documentation Only [facility] [address] [place] [address] Chantelle LaraNAPA, [place] [address] [place] [phone] Social History Tobacco Use Types Packs/Day Years [...] Visit [facility] [address] [place] [address] Timbo Murillo MD [address] [facility] [address] documented as of this encounter Visit Diagnoses Not on filedocumented in this encounter Care Teams Peer Specialist Relationship Specialty Start Date End Date Viktoriya Santillan DO [address] [place] [address] PCP - General Family Medicine 07/24/24 documented as of this encounter
--- OUTSIDE RECORDS SUMMARY | 2025-07-18 09:42 | XMS_ITS | Encounter Summary ---
Author Organization [facility] [place], Address [address] [place] [address] Phone Care Team Providers Care Blowing Engineer Name Role Phone Viktoriya Santillan DO Primary Care Provider Unava ilable Reason for Visit * Reason Comments Med Refill Encounter Details Date Type Department Care Team (Late Contact Info) Description 02/07/2024 Refill [facility] [address] [place] [address] Timbo Murillo MD [address] [place] [address] [place] [address] Social History Tobacco Use Types [...] Visit [facility] [place], [address] [facility] [place] [address] Timbo Murillo MD [address] [facility] [place] [address] documented as of this encounter Visit Diagnoses Not on filedocumented in this encounter Care Teams Blowing Engineer Relationship Specialty Start Date End Date Viktoriya Santillan DO [address] [place] [address] PCP - General Family Medicine 07/24/24 documented as of this encounter
--- OUTSIDE RECORDS SUMMARY | 2025-07-18 09:42 | XMS_ITS | Encounter Summary ---
Author Organization [facility] Address [address] [place] [address] Phone Care Team Providers Care Buckle Strap Puncher Name Role Phone Viktoriya Santillan DO Primary Care Provider Unava ilable Encounter Details Date Type Department Care Team (Late st Contact Info) Description 08/31/2022 Documentation Only [facility] [address] [place] [address] Timbo Murillo MD [address] [facility] [place] [address] Social History Tobacco Use Types [...] Visit [facility] [address] [place] [address] Timbo Murillo MD [address] [facility] [place] [address] documented as of this encounter Visit Diagnoses Not on filedocumented in this encounter Care Teams Buckle Strap Puncher Relationship Specialty Start Date End Date Viktoriya Santillan DO [address] [place] [address] PCP - General Family Medicine 11/26/24 documented as of this encounter
--- OUTSIDE RECORDS SUMMARY | 2025-07-18 09:43 | XMS_ITS | Encounter Summary ---
Author Organization [facility] Address [address] [place] [address] Phone Care Team Providers Care Hand Dry Cleaner Name Role Phone Viktoriya Santillan DO Primary Care Provider Unava ilable Encounter Details Date Type Department Care Team (Late st Contact Info) Description 09/02/2021 Documentation Only [facility] [address] [place] [address] Timbo Murillo MD [address] [place] [address] [place] [address] Social History Tobacco Use Types Packs/Day Years Used Date Smoking Tobacco: Some Days Cigarettes 7.5 Started: 01/09/2018 Sex and Gender Information Value Date Recorded Sex Assigned at Not on file Legal Sex Male 4:34 PM EST Gender Identity Not on file Sexual Orientation Not on file documented as of this encounter Functional Status documented as of this encounter Plan of Treatment Upcoming Encounters Date Type Department Care Team (Late st Contact Info) Description 12/27/2025 2:15 PM EDT Office Visit [facility] [address] [place] [address] Timbo Murillo MD [address] [place] [address] [place] [address] documented as of this encounter Visit Diagnoses Not on filedocumented in this encounter Care Teams Hand Dry Cleaner Relationship Specialty Start Date End Date Viktoriya Santillan DO [address] [place] [address] PCP - General Family Medicine 07/24/24 documented as of this encounter
--- OUTSIDE RECORDS SUMMARY | 2025-07-18 09:43 | XMS_ITS | Clinical Summary ---
Author Organization [employer] Address [address] [place] [address] 7t [place] [address] Care Team Providers Care Manager Division Name Role Phone TyrellViktoriya Primary Care Provider [phone] Allergies No known active allergies Medications allopurinol [...] 09/15/2022 CKD (chronic kidney disease), stage IV ([facility]) 09/15/2022 Essential hypertension 12/10/2019 Type 2 diabetes mellitus 04/29/2016 Tubular adenoma 09/14/2013 Hypertensive retinopathy 08/02/2012 Gout 05/30/2012 Retinal vascular occlusion 03/28/2012 BMI 32.0-32.9,adult 01/26/2012 Tobacco dependence 01/26/2012 Generalized osteoarthritis 12/20/2011 Obstructive sleep apnea 01/18/2011 Cataract 03/28/2010 Resolved Problems Problem Noted Date Diagnosed Date Resolved Date Stage 3 chronic kidney disease ([facility]) 12/10/2019 07/24/2024 Immunizations Immunization Administration Dates Next Due Hep [...] Screening 1957 Depression Screening 09/15/2023 09/15/2022, 09/15/19 Diabetes: Foot Exam 02/21/2025 02/22/2024, 02/22/2024, 02/22/2024, Additional history exists Lipid Panel 02/22/2025 02/23/2024, 03/31, 06/19/2021, Additional history exists COVID-19 Vaccine ( [...] disease, without long-term current use of insulin ([facility]) LIPID PANEL, STANDARD Routine 02/23/2024 8:40 AM EDT Type 2 diabetes mellitus with stage 4 chronic kidney disease, without long-term current use of insulin ([facility]) Essential hypertension from Last 3 Months or Most Recently Relevant to Health Maintenance Results * POCT HGB A1C (02/11/2025 1:30 PM EDT) Hemoglobin A1C 5.8 4.0 - 6.0 % Blood 02/11/2025 1:30 PM EDT Viktoriya Santillan DO POINT OF CARE TEST ENTER/ROBERTO T ORDERABLES Final Result * (ABNORMAL) Lipid Panel, Standard (02/23/2024 8:40 AM EDT) Triglycerides 87 <150 mg/dL [facility] Comment:Desirable Triglyceri de: less than 150 mg/dLBorderline High Triglyceride 150-199 mg/dLHigh Triglyceride: 200-499 mg/dLVery High Triglyceride: greater than or equal to 5OO mg/dL Cholesterol 160 <200 mg/dL [facility] Comment:Desirable Cholestero l: less than 200 mg/dLBorderline High Cholesterol: 200-239 mg/dLHigh Cholesterol: greater than 239 mg/dL LDL Cholesterol Calculated 102(H) <100 mg/dL [facility] Comment:Desirable LDL: less than 100 mg/dLNear Optimal/Above Optimal LDL: 110- 129 mg/dLBorderline High LDL: 130-159 mg/dLHigh LDL: 160-189 mg/dLVery High LDL: greater than or equal to 190 mg/dL HDL Cholesterol 41 >40 mg/dL [facility] Comment:Desirable HDL: great er than 40 mg/dL Note: This HDL assay may give artificially low results in patients with liver disease. Blood Venous blood specimen / Unknown 02/23/2024 8:40 AM EDT 02/23/2024 11:17 AM EDT Viktoriya Santillan DO LAB BLOOD ORDERABLES Final R esult [facility] [address] [place] [address] [phone] from Last 3 Months or Most Recently Relevant to Health Maintenance Insurance MEDIC[place] [address] [place] [phone] [facility] [place] [employer] MEDICARE REPLACEMENT Care Teams Manager Division Relationship Specialty Start Date End Date Viktoriya Santillan DO [address] [place] [address] PCP - General Family Medicine 02/08/20
[2025-07-18 11:12] LABS: MANUAL DIFF FLAG NO
[2025-07-18 11:19] LABS: Hematocrit 34.6 % (42.0-52.0); Hemoglobin 11.2 g/dl (14.0-18.0); Mean Corpuscular HGB Conc 32.4 g/dl (31.0-36.0); Mean Corpuscular Hemoglobin 32.7 pg (27.0-33.0); Mean Corpuscular Volume 101.2 fL (80.0-98.0); NRBC Abs Auto 0.000 X10*3/uL (0.0-0.012); NRBC Pct Auto 0.0 /100WBC (0.0-0.2); Platelet Count 227 X10*3/uL (160-400); Red Blood Count 3.42 X10*6/uL (4.60-5.80); White Blood Count 5.3 X10*3/uL (4.8-10.8)
[2025-07-18 11:21] LABS: Hematocrit 34.0 % (42.0-52.0); Hemoglobin 11.1 g/dl (14.0-18.0); Imm Gran Abs Auto 0.01 X10*3/uL (0.00-0.03); Imm Gran Pct Auto 0.2 % (0.0-0.4); Lymphocytes Absolute Auto 1.6 X10*3/uL (1.2-4.9); Mean Corpuscular HGB Conc 32.6 g/dl (31.0-36.0); Mean Corpuscular Hemoglobin 32.6 pg (27.0-33.0); Mean Corpuscular Volume 99.7 fL (80.0-98.0); NRBC Abs Auto 0.000 X10*3/uL (0.0-0.012); NRBC Pct Auto 0.0 /100WBC (0.0-0.2); Platelet Count 227 X10*3/uL (160-400); Red Blood Count 3.41 X10*6/uL (4.60-5.80); White Blood Count 5.2 X10*3/uL (4.8-10.8)
[2025-07-18 11:36] LABS: Appearance Urine Clear; Glucose Urine UA Negative (Negative); PH 7.0 (5.0-9.0); Specific Gravity - Urine 1.015 (1.005-1.025); UMIC TRIGGER UA YES; UMIC TRIGGER UACC YES
[2025-07-18 11:50] LABS: Alanine Aminotransferase 8 U/L (0-40); Albumin Level 3.8 g/dL (3.5-5.0); Alkaline Phosphatase 119 U/L (39-117); Aspartate Amino Transferase 17 U/L (5-37); Iron 52 mcg/dL (45-160); Percent Iron Saturation 45 % (15-50); Total Iron Binding Capacity 115 mcg/dL (228-428); Total Protein 6.4 g/dL (6.5-8.0); Unsaturated Iron Binding 63 ug/dL
[2025-07-18 12:02] LABS: Microalbum/Creatinine Ratio Ur 26.2 ug/mg cr (<30)
[2025-07-18 12:06] LABS: Ferritin 108 ng/mL (20-250)
[2025-07-18 12:21] LABS: Parathyroid Hormone Intact 332.3 pg/mL (8.7-77.1)
[2025-07-18 12:27] LABS: Alanine Aminotransferase 10 U/L (0-40); Albumin Level 3.7 g/dL (3.5-5.0); Alkaline Phosphatase 125 U/L (39-117); Anion Gap 11 (12-20); Aspartate Amino Transferase 16 U/L (5-37); Blood Urea Nitrogen 34 mg/dL (9-16); Calcium 9.0 mg/dL (8.4-10.2); Carbon Dioxide 26 mmol/L (22-29); Chloride 107 mmol/L (96-108); Cholesterol 162 mg/dL (<200); Estimated Glomerular Filt Rate 28; HDL Cholesterol 52 mg/dL (>40); Potassium 4.1 mmol/L (3.3-5.1); Sodium 140 mmol/L (135-145); Total Protein 6.5 g/dL (6.5-8.0); Triglycerides 51 mg/dL (<150)
[2025-07-18 12:45] LABS: Free T4 (Free Thyroxine) 1.05 ng/dL (0.71-1.85); Thyroid Stimulating Hormone 0.79 uIU/mL (0.32-4.0)
== END 2025-07-18 08:34 | disposition home or self-care (01) ==
LOC: HO.HHCL 08:33
PROVIDERS: PCP Family Medicine; Referring Provider Internal Medicine Nephrology; Visit Provider Family Medicine
DX: Z00.00 Encounter for general adult medical examination without abnormal findings (principal); I12.9 Hypertensive chronic kidney disease with stage 1 through stage 4 chronic kidney disease, or unspecified chronic kidney disease; E11.22 Type 2 diabetes mellitus with diabetic chronic kidney disease; N18.4 Chronic kidney disease, stage 4 (severe); E11.69 Type 2 diabetes mellitus with other specified complication; E78.49 Other hyperlipidemia; D50.8 Other iron deficiency anemias; I72.3 Aneurysm of iliac artery; K31.84 Gastroparesis; H53.121 Transient visual loss, right eye; G89.29 Other chronic pain; M25.561 Pain in right knee; M25.562 Pain in left knee; Z79.84 Long term (current) use of oral hypoglycemic drugs
CPT/HCPCS: 36415; 80048; 80061; 80076; 81001; 82043; 82306; 82570; 82728; 83036; 83540; 83970; 84100; 84439; 84443; 85025; 85027

== ENCOUNTER 2025-08-24 11:08 | Emergency (ER) | payer MEDICARE, SELFPAY ==
[2025-08-24] VITALS (9 sets, daily range): BP systolic 55–143; BP diastolic 36–75; PULSE 56–78; RESP 16–22; TEMP -17.7–36.8; O2SAT 94–96; BMI 34.5
--- NOTE | ~2025-08-24 | XR_ITS ---
CLINICAL HISTORY: weakness 1 view chest x-ray Comparison: 12/01/2023 Findings: Portions of the exam are obscured by overlying material. The lungs are clear. Heart size is normal. No acute fracture. IMPRESSION: 1. No acute findings. This document has been electronically signed by: Cornel Mujica MD on 08/24/2025 12:05:03
--- NOTE | 2025-08-24 11:25 | ECG_ITS ---
Test Reason : dizziness Blood Pressure : */* mmHG Vent. Rate : 70 BPM Atrial Rate : 70 BPM P-R Int : 178 ms QRS Dur : 78 ms QT Int : 390 ms P-R-T Axes : 54 -21 8 degrees QTcB Int : 421 ms Normal sinus rhythm Normal ECG When compared with ECG of 25-Nov-2024 15:15, Premature ventricular complexes are no longer Present Referred By: Hayden Bailey Electronically Signed By: HANNY BERKOWITZ MD
--- NOTE | 2025-08-24 11:25 | ED.GENADULT ---
[facility] - General Adult General Chief complaint: Dizziness Stated complaint: dizzy Time Seen by Provider: 08/24/25 11:38 Source: patient Mode of arrival: wheelchair Limitations: no limitations History of Present Illness ED Provider: [facility] narrative: 80-year-old male with a history of gout, hyperlipidemia, hypertension reportedly sick contacts at home, has had vomiting and diarrhea 2 days prior and then has been becoming as he was describing dizzy almost passing out without any chest pain or palpitations or headaches, he states he just kept getting weaker, he was noted to be hypotensive in the wheelchair. Related Data Home Medications ?Medication ?Instructions ?Recorded ?Confirmed allopurinol 300 mg tablet 300 mg PO DAILY 10/28/20 05/15/25 atorvastatin 20 mg tablet 20 mg PO QAM 10/28/20 05/15/25 carvedilol 12.5 mg tablet 12.5 mg PO BID 10/28/20 05/15/25 doxazosin 4 mg tablet 4 mg PO DAILY 10/28/20 05/15/25 lisinopril 10 1 tab PO QAM 10/28/20 05/15/25 mg-hydrochlorothiazide 12.5 mg tablet pioglitazone 15 mg tablet 15 mg PO QAM 10/28/20 05/15/25 sodium bicarbonate 650 mg tablet 1,300 mg PO BID 10/28/20 05/15/25 [id number]-nhhppsdf-ddss 1 tab PO QAM 02/16/22 05/15/25 fumarate 7.5 mg-folic acid 400 mcg tablet Previous Rx's ?Medication ?Instructions ?Recorded metoclopramide HCl 5 mg tablet 5 mg PO .tidac 30 days #90 tabs 02/16/22 (Reglan) sodium,potassium,mag sulfates 17.5 480 ml PO .COMPLEX #354 mL 03/29/25 gram-3.13 gram-1.6 gram oral soln (Suprep Bowel Prep Kit) ondansetron 4 mg disintegrating 4 mg PO Q8H PRN nausea and 08/24/25 tablet vomiting #4 tabs Allergies Allergy/AdvReac Type Severity Reaction Status Date / Time No Known Allergies (No Known Allergy Verified 08/24/25 11:32 Allergies*) Review of Systems Constitutional: Constitutional: Reports as per [facility] Past Medical History Medical History Arthritis Diabetes GERD (gastroesophageal reflux disease) YENNI (obstructive sleep apnea) Iliac artery aneurysm (~2019) Personal history of nicotine dependence Hyperlipidemia Hypertension Tubular adenoma of colon (~2013) Surgical History History of colonoscopy Family History Family History Father Stomach cancer Mother Breast cancer Diabetes HTN (hypertension) Sister Uterine cancer Maternal Grandmother Diabetes HTN (hypertension) Social History Social History Alcohol intake: current Alcohol intake frequency: does not drink Patient Tobacco Use Status: Former Tobacco user Years Smoked: 48 - onset 18yo, 1/2ppd x 48yrs, 24pyh Smoked in Last 30 Days: No Use of substances other than those prescribed or required for medical reasons: No Substance Use Type: Marijuana Advance Directives: No Advance Directives Information Provided: Yes Do you have a plan to hurt others: No Plan Physical Exam ED Vital Signs: Vital Signs - 24 hr 08/24/25 11:27 08/24/25 11:39 08/24/25 11:43 Temperature 98.2 F Pulse Rate 73 74 Respiratory Rate 20 16 22 H Blood Pressure 55/36 L 111/67 106/65 Pulse Oximetry 96 96 Oxygen Delivery Method Room Air Room Air 08/24/25 12:06 08/24/25 12:17 08/24/25 12:25 Temperature Pulse Rate 69 60 62 Respiratory Rate 16 20 Blood Pressure 85/55 L 108/63 132/66 Pulse Oximetry 94 Oxygen Delivery Method Room Air 08/24/25 12:49 08/24/25 12:49 08/24/25 12:50 Temperature Pulse Rate 56 72 78 Respiratory Rate Blood Pressure 136/62 124/71 105/59 L Pulse Oximetry Oxygen Delivery Method BMI result Body Mass Index 34.5 Course Course Course Narrative: RME, this is a rapid medical exam performed by Jm Bailey please refer to primary provider for complete H&P- 80-year-old male presents for evaluation of dizziness. He reports his symptoms started 3 days ago. His has been sick with the flu for the last week. He denies any pain but endorses nausea and vomiting. The patient was noted to have a pressure 56/41. He was brought straight back to room 8 and placed on a community recreation programmer. Plan for labs, EKG, viral swabs. Medications Administered Generic Name Dose Route Start Last Admin Trade Name Freq PRN Reason Stop Dose Admin Lactated Ringer's 1,000 mls @ 0 mls/hr 08/24/25 12:15 08/24/25 12:49 Lr IV 999 mls/hr .Q0M ASUNCION Administration Wide Open Discontinued Medications Generic Name Dose Route Start Last Admin Trade Name Freq PRN Reason Stop Dose Admin Sodium Chloride 1,000 mls @ 999 mls/hr 08/24/25 12:15 08/24/25 12:49 Ns IV 08/24/25 13:15 Infused .Q1H1M ASUNCION Infusion Medical Decision Making Medical Decision Making MDM Narrative: 12:28 PM 08/24/2025 (Dr. Eliecer Umanzor): Presenting with GI symptoms, reportedly flu contacts at home, was noted to be quite hypotensive with thus far good response to IV fluids very quickly, there was no evidence for cerebellar stroke or vertigo on physical examination, did not feel there was any indication for imaging of the head or abdomen at this time he has quite benign abdominal exam We will workup for ACE, electrolyte derangements, disposition to be determined 12:46 PM 08/24/2025 (Dr. Eliecer Umanzor): Patient is flu A positive, I considered prescribing assault him of the your however it works best when initiated with a 48 hours of symptoms onset 1:40 PM 08/24/2025 (Dr. Eliecer Umanzor): Patient feels well, ambulatory trial past, will discharge to home with the return precautions Differential Diagnosis Differential Diagnoses: The differential diagnosis associated with the presentation includes (Pneumonia, flu, dehydration, electrolyte derangements, UTI, cerebellar stroke, BPPV, dysrhythmia) Admission/Observation Consideration of admission/observation: Escalation of care including admission/observation considered Lab Data [facility] Lab Attestation statement: I reviewed the patient's lab results. 08/24/25 11:42 08/24/25 11:42 Labs: Lab Results 08/24/25 08/24/25 08/24/25 Range/Units 11:42 11:46 11:51 WBC 5.2 (4.8-10.8) X10*3/uL RBC 3.59 L (4.60-5.80) X10*6/uL Hgb 11.6 L (14.0-18.0) g/dl Hct 34.7 L (42.0-52.0) % MCV 96.7 (80.0-98.0) fL MCH 32.3 (27.0-33.0) pg MCHC 33.4 (31.0-36.0) g/dl RDW 13.6 (11.0-16.0) % Plt Count 199 (160-400) X10*3/uL MPV 9.1 L (9.4-12.4) fL Immature Gran % (Auto) 0.4 (0.0-0.4) % Neut % (Auto) 53.0 (45-73) % Lymph % (Auto) 37.6 (20-40) % [place] % (Auto) 7.8 (2-11) % Eos % (Auto) 1.0 (0-4) % Baso % (Auto) 0.2 (0-2) % Lymph # (Auto) 2.0 (1.2-4.9) X10*3/uL [place] # (Auto) 0.4 (0.1-1.2) X10*3/uL Eos # (Auto) 0.1 (0.0-0.4) X10*3/uL Baso # (Auto) 0.0 (0.0-0.2) X10*3/uL Abs Immat Gran (auto) 0.02 (0.00-0.03) X10*3/uL Absolute Neuts (auto) 2.8 (2.0-8.3) x10*3/uL Absolute Nucleated RBC 0.000 (0.0-0.012) X10*3/uL Nucleated RBC % (auto) 0.0 (0.0-0.2) /100WBC PT 12.4 (11.2-13.5) SEC INR 1.0 (0.9-1.1) VBG pH 7.35 (7.32-7.43) VBG pCO2 44 mmHg VBG pO2 50 mmHg VBG HCO3 24 (22-26) mmol/L VBG O2 Saturation 77.0 % VBG Base Excess -0.7 mmol/L Sodium 135 (135-145) mmol/L Potassium 3.6 (3.3-5.1) mmol/L Chloride 102 (96-108) mmol/L Carbon Dioxide 22 (22-29) mmol/L Anion Gap 15 (12-20) BUN 34 H (9-16) mg/dL Creatinine 2.60 H (0.5-1.4) mg/dL Estim Creat Clear Calc 27.1 Estimated GFR 24 Random Glucose 111 (60-115) mg/dL Lactic Acid 1.8 (0.5-2.0) mmol/L Calcium 8.6 (8.4-10.2) mg/dL Total Bilirubin 0.5 (0.0-1.0) mg/dL AST 31 (5-37) U/L ALT 17 (0-40) U/L Alkaline Phosphatase 120 H (39-117) U/L Total Protein 6.5 (6.5-8.0) g/dL Albumin 3.8 (3.5-5.0) g/dL Lipase 42 (8-78) U/L Influenza Type A (PCR) POSITIVE A (Negative) Influenza Type B (PCR) NEGATIVE (Negative) RSV RNA Qual (PCR) NEGATIVE (Negative) SARS-CoV-2 RNA (RT-PCR) NEGATIVE (Negative) Independent Interpretation I performed an independent interpretation of an: EKG (70 beats per minute otherwise normal ECG without dysrhythmia, AV chris blocks or ST-T changes to suspect underlying ACS, my independent interpretation) Critical Care Time Critical Care Time Critical Care Time: Yes Total Critical Care Time: 40 Attestation: Time is exclusive of separately billable procedures. Time includes: direct patient care, patient reassessment, coordination of patient care, interpretation of data (laboratory data, pulse oximetry, arterial blood gases and chest xrays), review of patient's medical records, medical consultation and documentation of patient care. Procedures excluded from critical care time: central intravenous line placement and electrocardiography. Discharge Plan Discharge Clinical Impression: Influenza A, Acute kidney injury superimposed on CKD, Hypotension Additional Instructions: As discussed there was evidence of dehydration both clinically and based on your blood work, a chest x-ray was unremarkable, EKG reassuring, your blood pressure was very low on initial presentation with significant improvement with IV fluids As we discussed continue staying hydrated at home, Zofran as needed for nausea and vomiting, follow up with the PCP, worsening issues concerns come back to the ER Prescriptions: New ondansetron 4 mg tablet,disintegrating 4 mg PO Q8H PRN (Reason: nausea and vomiting) Qty: 4 0RF No Action atorvastatin 20 mg tablet 20 mg PO QAM carvedilol 12.5 mg tablet 12.5 mg PO BID lisinopril-hydrochlorothiazide 10-12.5 mg tablet 1 tab PO QAM pioglitazone 15 mg tablet 15 mg PO QAM doxazosin 4 mg tablet 4 mg PO DAILY allopurinol 300 mg tablet 300 mg PO DAILY sodium bicarbonate 650 mg tablet 1,300 mg PO BID fnwulqhx-wla-shfa fum-folic ac 7.5 mg iron-400 mcg tablet 1 tab PO QAM metoclopramide HCl [Reglan] 5 mg tablet 5 mg PO .tidac 30 Days Qty: 90 6RF sodium,potassium,mag sulfates [Suprep Bowel Prep Kit] 17.5-3.13-1.6 gram recon soln 480 ml PO .COMPLEX Qty: 354 0RF Rx Instructions: 480 mL orally; FOR COLONOSCOPY PREP Print Language: Indonesian
[2025-08-24 11:51] LABS: Hematocrit 34.7 % (42.0-52.0); Hemoglobin 11.6 g/dl (14.0-18.0); Imm Gran Abs Auto 0.02 X10*3/uL (0.00-0.03); Imm Gran Pct Auto 0.4 % (0.0-0.4); Lymphocytes Absolute Auto 2.0 X10*3/uL (1.2-4.9); MANUAL DIFF FLAG NO; Mean Corpuscular HGB Conc 33.4 g/dl (31.0-36.0); Mean Corpuscular Hemoglobin 32.3 pg (27.0-33.0); Mean Corpuscular Volume 96.7 fL (80.0-98.0); NRBC Abs Auto 0.000 X10*3/uL (0.0-0.012); NRBC Pct Auto 0.0 /100WBC (0.0-0.2); Platelet Count 199 X10*3/uL (160-400); Red Blood Count 3.59 X10*6/uL (4.60-5.80); White Blood Count 5.2 X10*3/uL (4.8-10.8)
[2025-08-24 11:53] LABS: Venous Blood Gas Refer to POC result
[2025-08-24 11:54] LABS: VBG HCO3 24 mmol/L (22-26); VBG O2 % Saturation 77.0 %
[2025-08-24 12:02] LABS: INTERNATIONAL NORM RATIO 1.0 (0.9-1.1); Prothrombin Time 12.4 SEC (11.2-13.5)
[2025-08-24 12:12] LABS: Alanine Aminotransferase 17 U/L (0-40); Albumin Level 3.8 g/dL (3.5-5.0); Alkaline Phosphatase 120 U/L (39-117); Anion Gap 15 (12-20); Aspartate Amino Transferase 31 U/L (5-37); Blood Urea Nitrogen 34 mg/dL (9-16); Calcium 8.6 mg/dL (8.4-10.2); Carbon Dioxide 22 mmol/L (22-29); Chloride 102 mmol/L (96-108); Creatinine Clr Calc Pharmacy 27.1; Estimated Glomerular Filt Rate 24; Lipase 42 U/L (8-78); Potassium 3.6 mmol/L (3.3-5.1); Sodium 135 mmol/L (135-145); Total Protein 6.5 g/dL (6.5-8.0)
[2025-08-24 12:37] LABS: Resp Syncy Virus RNA Qual PCR NEGATIVE (Negative); SARS COV2 PCR INHOUSE NEGATIVE (Negative)
[2025-08-24] MEDS: Lactated Ringers 1,000 ML 999 ML IV (12:49)
--- OUTSIDE RECORDS SUMMARY | 2025-08-24 13:05 | XMS_ITS | Encounter Summary ---
Author Organization [employer] Address [address] [facility] [address] [place] [address] Care Team Providers Care Trichologist Name Role Phone Viktoriya Santillan DO Primary Care Provider [phone] Reason for Visit * Reason Comments Care Coordination CHW outreach for SDO H PT-1 and food needs-LVM Encounter Details Date Type Department Care Team (Latest Contact Info) Description 08/19/2025 Patient Outreach [facility] [address] [place] [address] Viktoriya Santillan DO [address] [place] [address] Care Coordination (CHW outreach for SDOH PT-1 and food needs-LVM /) Social History Tobacco Use Types Packs/Day Years Used Date Smoking Tobacco: Former Cigarettes Q uit: 2012 Passive Smoke Exposure: Past Smokeless Tobacco: Never Alcohol Use Standard Drinks/Week Comments Never 0 (1 standard drink = 0.6 oz pur e alcohol) Depression Answer Date Recorded Patient Health Questionnaire-9 Score 3 09/15/2022 Housing Stability Answer Date Recorded What is your housing situation today? I have karolynmelchor marquez 08/16/[address] you li ve. Do you have problems with any of the following? None of the above 08/16/2025 Food Insecurity Answer Date Recorded Within the past 12 months, y ou worried that your food would run out before you got money to buy more: Never True 08/16/2025 Within the past 12 months,th e food you bought just didn't last and you didn't have enough money to get more: Never True Transportation Answer Date Recorded In the past 12 months, has l ack of transportation kept you from medical appts, meetings, work or from getting things needed for daily living? Yes, it has kept me from non-medical meetings, work, or getting things that I need 08/16/2025 Utilities Answer Date Recorded In the past 12 months, has t he electric, gas, oil or water company threatened to shut off services in your home? No 08/16/2025 Depression Answer Date Recorded Patient Health Questionnaire-2 Score 0 09/15/2022 Internet Access Answer Date Recorded Internet Access Q1 No 08/16/2025 Internet Access Q2 I do not want or need it 07/29 Sex and Gender Information Value Date Recorded Sex Assigned at Male 06/28/2022 10:16 AM EDT Legal Sex Male 10:16 AM EDT Gender Identity Male 06/28/2022 10:16 AM EDT Sexual Orientation Straight 06/28/2022 10 :16 AM EDT documented as of this encounter Progress Notes * Davey Ceballos - 08/19/2025 9:48 AM EST CHW Davey Ceballos, placed outbound call to patient for assistance with SDOH as a referral was placed by the provider. Patient had screened positive for the following SDOH housing insecurities. Patient did not answer at this time. Patient's name and were not confirmed. CHW left detailed message and provided contact information requesting return call for more assistance. documented in this encounter Plan of Treatment Upcoming Encounters Date Type Department Care Team (Late st Contact Info) Description 09/03/2025 9:00 AM EST Office Visit [facility] [address] [place] [address] Viktoriya Santillan DO [address] [place] [address] documented as of this encounter Goals Goal Patient Goal Type Associated Problems Recent Progress Patient-Stated? Author Help patients manage their type 2 diabetes Care Plan Help patients manage their type 2 diabetes No Yessy Akhtar, RN Weekly blood pressure task Care Plan Weekly blood pressure task No Yessy Akhtar, RN Help patients manage their type 2 diabetes Care Plan Help patients manage their type 2 diabetes No Yessy Akhtar RN Patient has chronic kidney disease Care Plan Patient has chronic kidney disease No Yessy Akhtar RN Weekly blood pressure task Care Plan Weekly blood pressure task No Yessy Akhtar RN Patient has chronic kidney disease Care Plan Patient has chronic kidney disease No Yessy Akhtar RN Weekly blood pressure task Care Plan Weekly blood pressure task No Mery Chaudhry [place] Weekly blood pressure task Care Plan Weekly blood pressure task No Mery Chaudhry [place] Patient has chronic kidney disease Care Plan Patient has chronic kidney disease No Mery Chaudhry [place] Patient has chronic kidney disease Care Plan Patient has chronic kidney disease No Mery Chaudhry [place] Weekly blood pressure task Care Plan Weekly blood pressure task No Mery Chaudhry [place] Weekly blood pressure task Care Plan Weekly blood pressure task No Mery Chaudhry [place] Patient has chronic kidney disease Care Plan Patient has chronic kidney disease No Mery Chaudhry [place] Patient has chronic kidney disease Care Plan Patient has chronic kidney disease No Mery Chaudhry [place] Weekly blood pressure task Care Plan Weekly blood pressure task No Hue Pugh Weekly blood pressure task Care Plan Weekly blood pressure task No Hue Pugh Patient has chronic kidney disease Care Plan Patient has chronic kidney disease No Hue Pugh Patient has chronic kidney disease Care Plan Patient has chronic kidney disease No Hue Pugh Weekly blood pressure task Care Plan Weekly blood pressure task No Davey Ceballos Weekly blood pressure task Care Plan Weekly blood pressure task No Davey Ceballos Patient has chronic kidney disease Care Plan Patient has chronic kidney disease No Davey Ceballos Patient has chronic kidney disease Care Plan Patient has chronic kidney disease No Davey Ceballos documented as of this encounter Visit Diagnoses Not on filedocumented in this encounter Additional Health Concerns Active Problems Noted Date Diagnosed Date Help patients manage their type 2 diabetes 07/19 Weekly blood pressure task 07/19/2025 Help patients manage their type 2 diabetes 07/19 Patient has chronic kidney disease 07/19/2025 Weekly blood pressure task 07/19/2025 Patient has chronic kidney disease 07/19/2025 Weekly blood pressure task 07/24/2025 Weekly blood pressure task 07/24/2025 Patient has chronic kidney disease 07/24/2025 Patient has chronic kidney disease 07/24/2025 Weekly blood pressure task 07/24/2025 Weekly blood pressure task 07/24/2025 Patient has chronic kidney disease 07/24/2025 Patient has chronic kidney disease 07/24/2025 Weekly blood pressure task 08/16/2025 Weekly blood pressure task 08/16/2025 Patient has chronic kidney disease 08/16/2025 Patient has chronic kidney disease 08/16/2025 Weekly blood pressure task 08/19/2025 Weekly blood pressure task 08/19/2025 Patient has chronic kidney disease 08/19/2025 Patient has chronic kidney disease 08/19/2025 Assessment Noted Time PHQ-9 Depression Total Score: 3 09/15/19 23 9:37 AM EST documented as of this encounter Care Teams Trichologist Relationship Specialty Start Date End Date Viktoriya Santillan DO [address] [place] [id number] PCP - General Family Medicine 02/08/20 documented as of this encounter
--- OUTSIDE RECORDS SUMMARY | 2025-08-24 13:05 | XMS_ITS | Encounter Summary ---
Author Organization [facility] Address [address] [place] [address] Phone Care Team Providers Care Sprinkler Tender Name Role Phone Viktoriya Santillan DO Primary Care Provider Unava ilable Encounter Details Date Type Department Care Team (Late st Contact Info) Description 08/31/2022 Documentation Only [facility] [address] [place] [address] Timbo Murillo MD [address] [facility] [place] [address] Social History Tobacco Use Types Packs/Day Years Used Date Smoking Tobacco: Some Days Cigarettes 7.6 Started: 01/09/2018 Sex and Gender Information Value Date Recorded Sex Assigned at Not on file Legal Sex Male 4:34 PM EST Gender Identity Not on file Sexual Orientation Not on file documented as of this encounter Plan of Treatment Upcoming Encounters Date Type Department Care Team (Late st Contact Info) Description 12/27/2025 2:15 PM EDT Office Visit [facility] [address] [place] [address] Timbo Murillo MD [address] [facility] [place] [address] documented as of this encounter Visit Diagnoses Not on filedocumented in this encounter Care Teams Sprinkler Tender Relationship Specialty Start Date End Date Viktoriya Santillan DO [address] [place] [id number] PCP - General Family Medicine 11/26/24 documented as of this encounter
--- OUTSIDE RECORDS SUMMARY | 2025-08-24 13:05 | XMS_ITS | Clinical Summary ---
Author Organization [facility], Address [address] [place] [address] [place] [address] Phone Care Team Providers Care Optics Manufacturing Technician Name Role Phone Viktoriya Santillan DO Primary [...] Encounters Date Type Department Care Team Description 07/18/2025 Documentation Only [facility] [address] [place] [address] Chantelle Lara MA 07/05/2025 2:15 PM EST Office Visit [facility] [address] [place] [address] Timbo Murillo MD Chronic kidney disease, stage 4 (severe) (HCC) (Primary Dx); Hypertension; Type 2 diabetes mellitus with diabetic chronic kidney disease, 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); Iron deficiency anemia, not otherwise specified 06/18/2025 Orders Only [facility] [address] [place] [address] Chantelle Lara MA Stage 3b chronic kidney [...] Visit [facility], [address] [facility] [place] [address] Timbo Murillo MD [address] [facility] [place] [address] Health Maintenance Due Date Last Done Comments Pneumococcal Vaccine: 50+ Years (2 of 2 - PPSV23, PCV20, or PCV21) 04/08/2021 02/11/2021, 05/24/2012, 05/24/2012 Diabetes: Ophthalmology Exam 09/03/2022 Diabetes: Pedal Pulse Checked 09/03/2022 Diabetes: Sensory Foot Exam 09/03/2022 Diabetes: Visual Foot Exam 09/03/2022 Influenza Vaccine (#1) 2025 Diabetes: Hemoglobin A1C 10/18/2025 025, 02/11/2025, 07/24/2024, Additional history exists Pneumococcal Vaccine: Peds (0 [...] PM EDT) Hemoglobin A1C 6.0(H) (4.0-5.6) % [facility] Comment: MONITORING: In known diabetic patients, hemoglobin A1c targets should be discussed with health care provider. DIAGNOSTIC USE: The [place] Diabetes Association (ADA) and the World Health [...] Supplement 1 Testing performed or reported by [facility], a Service of [facility], [address] [place] [id number] Kimberly Daniels MD, Etiquette Coach Blood specimen (specimen) Venous blood / Unknown 01/30/2021 4:08 PM EDT 01/30/2021 4:13 PM EDT Timbo Murillo MD LAB BLOOD ORDERABLES Final Result [facility] from Last 3 Months or Most Recently Relevant to Health Maintenance Insurance Medicaid [place] [employer] Medicare Care Teams Optics Manufacturing Technician Relationship Specialty Start Date End Date Viktoriya Santillan DO [address] [place] [id number] PCP - General Family Medicine 07/24/24
--- OUTSIDE RECORDS SUMMARY | 2025-08-24 13:05 | XMS_ITS | Encounter Summary ---
Author Organization [facility] Address [address] [place] [address] Phone Care Team Providers Care Youth Probation Officer Name Role Phone Viktoriya Santillan DO Primary Care Provider Unava ilable Encounter Details Date Type Department Care Team (Late st Contact Info) Description 07/25/2024 Documentation Only [facility] [address] [place] [address] [place] [address] [place] [phone] Social History Tobacco Use Types Packs/Day Years [...] Visit [facility] [address] [place] [address] Timbo Murillo MD [address] [facility] [place] [address] documented as of this encounter Visit Diagnoses Not on filedocumented in this encounter Care Teams Youth Probation Officer Relationship Specialty Start Date End Date Viktoriya Santillan DO [address] [place] [id number] PCP - General Family Medicine 07/24/24 documented as of this encounter
--- OUTSIDE RECORDS SUMMARY | 2025-08-24 13:05 | XMS_ITS | Clinical Summary ---
Author Organization [employer] Address [address] [place] [address] [address] [place] [address] Care Team Providers Care President [employer] Name Role Phone TyrellViktoriya Primary Care Provider + [phone] Allergies No known active allergies Medications allopurinol (Zyloprim) 300 MG tablet Take 1 tablet by mouth in the morning. 02/09/20 22 Active doxazosin (Cardura) 4 MG tablet Take 1 tablet by mouth at bed time. 11/13/19 22 Active metoclopramide (Reglan) 5 MG tablet Take 1 tablet by mouth 3 times daily. 11/27/19 21 Active pioglitazone (Actos) 15 MG tablet Take 1 tablet by mouth in the morning. 01/12/20 22 Active sodium bicarbonate 650 MG tablet Take 2 tablets by mouth 2 times daily. 02/09/20 22 Active cilostazol (Pletal) 100 MG tablet TAKE 1 TABLET BY MOUTH TWICE DAILY IN THE MORNING AND IN THE EVENING 08/16/20 22 Active loratadine (Claritin) 10 MG tabletIndicatio ns:Seasonal allergic rhinitis, unspecified trigger TAKE 1 TABLET BY MOUTH EVERY MORNING 90 tablet 3 07/12/20 23 Active acetaminophen (Tylenol 8 Hour) 650 MG ER tablet TAKE 1 TABLET BY MOUTH EVERY 8 HOURS NEEDED FOR PAIN, DO NOT BREAK, CRUSH, DISSOLVE OR CHEW 60 tablet 1 12/20/19 24 Active Multiple Vitamins-Minera ls (multivitamin with minerals) tablet TAKE 1 TABLET BY MOUTH EVERY MORNING 90 tablet 3 02/01/20 24 Active lidocaine (Lidoderm) 5 % patchIndication s:Chronic knee pain, unspecified laterality Apply 2 patches topically if needed each day for mild pain. Remove & discard patch within 12 hours or as directed by MD. 60 patch 5 02/22/20 24 Active Diclofenac Sodium 1 % gel APPLY 2 GRAMS TO AFFECTED AREA(S) 4 TIMES A DAY IN THE MORNING, AT NOON, IN THE EVENING, AND AT BEDTIME FOR PAIN 100 g 08/30/19 25 Active Blood Pressure kit 1 each 1 (one) time per week. 1 kit 10/07/19 25 Active lisinopril-hydr oCHLOROthiazide 10-12.5 MG tablet TAKE 1 TABLET BY MOUTH EVERY MORNING 90 tablet 3 11/24/19 25 Active carvedilol (Coreg) 12.5 MG tablet TAKE 1 TABLET BY MOUTH TWICE DAILY IN THE MORNING AND IN THE EVENING 180 tablet 3 02/26/20 25 Active cholecalciferol (Vitamin D-3) 50 MCG (2000 UT) capsule Take 1 capsule (50 mcg) by mouth Once per day. 90 capsule 3 07/22/20 25 Active atorvastatin (Lipitor) 40 MG tablet TAKE 1 TABLET BY MOUTH EVERY MORNING 90 tablet 3 5 11:51 AM EST 07/26/20 25 Active atorvastatin (Lipitor) 40 MG tablet Take 1 tablet (40 mg) by mouth in the morning. 90 tablet 3 05/11/20 24 025 Discontinued Active Problems Problem Noted Date Diagnosed Date Blindness of left eye 07/24/2024 Gastroparesis 07/24/2024 Chronic knee pain 07/24/2024 Healthcare maintenance 07/24/2024 Hyperlipidemia 09/15/2022 CKD (chronic kidney disease), stage IV (CMS/HCC) 09/15/2022 Essential hypertension 12/10/2019 Type 2 diabetes mellitus 04/29/2016 Tubular adenoma 09/14/2013 Hypertensive retinopathy 08/02/2012 Gout 05/30/2012 Retinal vascular occlusion 03/28/2012 BMI 32.0-32.9,adult 01/26/2012 Tobacco dependence 01/26/2012 Generalized osteoarthritis 12/20/2011 Obstructive sleep apnea 01/18/2011 Cataract 03/28/2010 Resolved Problems Problem Noted Date Diagnosed Date Resolved Date Stage 3 chronic kidney disease (CMS/HCC) 12/10/2019 07/24/2024 Encounters Date Type Department Care Team Description 08/24/2025 Orders Only GENERIC EXTERNAL DATA DEPARTMENT Provider, Generic External Data 08/19/2025 Patient Outreach [facility] [address] [place] [address] [phone] Jurcsak, Viktoriya, DO Care Coordination (CHW outreach for SDOH PT-1 and food needs-LVM /) 08/16/2025 Patient Outreach [facility] [address] [place] [phone] Viktoriya Santillan DO Pre-visit Planning (SDOH screening positive and tobacco screening negative) 07/24/[address] [phone] Viktoriya Santillan DO Recall Letter (Recall Letter sent 07/24/25.) 07/24/[address] [phone] Viktoriya Santillan DO 07/19/[address] [phone] Viktoriya Santillan DO 07/18/2025 Orders Only GENERIC EXTERNAL DATA DEPARTMENT Provider, Generic External Data from Last 3 Months Immunizations Immunization Administration Dates Next Due Hep A, Adult 05/24/2012 Hep B, adult 06/11/2021,02/11/2021,05/24/2012 Pfizer Covid-19 Vaccine 12+ 06/08/2024, Pfizer Covid-19 Vaccine 12+ Bivalent 09/16/2022 Pfizer [...] your housing situation today? I have karolyn sing 08/16/[address] you li [...] 02/11/2025 1:28 PM EDT Plan of Treatment Upcoming Encounters Date Type Department Care Team (Late st Contact Info) Description 09/03/2025 9:00 AM EST Office Visit [facility] [address] [place] [address] Viktoriya Santillan DO [address] [place] [phone] Health Maintenance Due Date Last Done Comments Eye Exam 1955 Alcohol/Substance Use Screening 1957 Depression Screening 09/15/2023 09/15/2022, 09/15/19 Diabetes: Foot Exam 02/21/2025 02/22/2024, 02/22/2024, 02/22/2024, Additional history exists COVID-19 Vaccine ( season) 2025 06/08/2024, 10/03/2023, 09/16/2022, Additional history exists Influenza Vaccine (#1) 2025 Diabetes: Hemoglobin A1C 01/15/2026 025, 02/11/2025, 07/24/2024, Additional history exists Tobacco Screening 02/11/2026 02/11/2025 Lipid Panel 07/18/2026 07/18/2025, 01/28, 04/28/2022, Additional history exists SDOH Screening 08/16/2026 08/16/2025 DTaP/Tdap/Td Vaccines (3 - Td or Tdap) [...] on patient's age to complete this topic Goals Goal Patient Goal Type Associated Problems Recent Progress Patient-Stated? Author Help patients manage their type 2 diabetes Care Plan Help patients manage their type 2 diabetes No Yessy Akhtar RN Weekly blood pressure task Care Plan Weekly blood pressure task No Yessy Akhtar RN Help patients manage their type 2 [...] Care Plan Weekly blood pressure task No Lin, Davey Patient has chronic kidney disease Care Plan Patient has chronic kidney disease No Davey Ceballos Patient has chronic kidney disease Care Plan Patient has chronic kidney disease No Davey Ceballos Procedures Procedure Name Priority Date/Time Associated Diagnosis Comments XR CHEST 1 VIEW Routine 08/24/2025 12:05 PM EST VENOUS BLOOD GAS Routine 08/24/2025 11:5 1 AM EST PROTHROMBIN TIME-INR Routine 08/24/2025 11:46 AM EST LIPASE Routine 08/24/2025 11:42 AM EST COMPREHENSIVE METABOLIC PANEL Routine 08/24/2025 11:42 AM EST LACTIC ACID Routine 08/24/2025 11:42 AM EST CBC WITH AUTO DIFFERENTIAL Routine 08/24/2025 11:42 AM EST SARS COV2/INFLUENZA A/B AND RSV RNA QL NAAT Routine 08/24/2025 11:42 AM EST PTH, INTACT WITHOUT CALCIUM Routine 07/18/2025 8:58 AM EST FERRITIN Routine 07/18/2025 8:58 AM EST IRON AND TOTAL IRON BINDING CAPACITY Routine 07/18/2025 8:58 AM EST PHOSPHATE ( PHOSPHORUS) Routine 07/18/2025 8:58 AM EST HEPATIC FUNCTION PANEL Routine 8:58 AM EST URINALYSIS, COMPLETE (INCLUDES MACRO AND MICRO) Routine 07/18/2025 8:58 AM EST CBC WITH AUTO DIFFERENTIAL Routine 07/18/2025 8:58 AM EST ALBUMIN, RANDOM URINE W/CREATININE Routine 07/18/2025 8:58 AM EST Type 2 diabetes mellitus with stage 4 chronic kidney disease, without long-term current use of insulin (HCC) Essential hypertension Other hyperlipidemia CKD (chronic kidney disease), stage IV (CMS/HCC) (HCC) Aneurysm of left common iliac artery Gastroparesis Chronic pain of both knees Episode of visual loss of right eye Healthcare maintenance CBC Routine 07/18/2025 8:58 AM EST Type 2 diabetes mellitus with stage 4 chronic kidney disease, without long-term current use of insulin (HCC) Essential hypertension Other hyperlipidemia CKD (chronic kidney disease), stage IV (CMS/HCC) (HCC) Aneurysm of left common iliac artery Gastroparesis Chronic pain of both knees Episode of visual loss of right eye Healthcare maintenance BASIC METABOLIC PANEL Routine 07/18/2025 8:58 AM EST Type 2 diabetes mellitus with stage 4 chronic kidney disease, without long-term current use of insulin (HCC) Essential hypertension Other hyperlipidemia CKD (chronic kidney disease), stage IV (CMS/HCC) (HCC) Aneurysm of left common iliac artery Gastroparesis Chronic pain of both knees Episode of visual loss of right eye Healthcare maintenance HEMOGLOBIN A1C Routine 07/18/2025 8:58 AM EST Type 2 diabetes mellitus with stage 4 chronic kidney disease, without long-term current use of insulin (HCC) Essential hypertension Other hyperlipidemia CKD (chronic kidney disease), stage IV (CMS/HCC) (HCC) Aneurysm of left common iliac artery Gastroparesis Chronic pain of both knees Episode of visual loss of right eye Healthcare maintenance HEPATIC FUNCTION PANEL Routine 8:58 AM EST Type 2 diabetes mellitus with stage 4 chronic kidney disease, without long-term current use of insulin (HCC) Essential hypertension Other hyperlipidemia CKD (chronic kidney disease), stage IV (CMS/HCC) (HCC) Aneurysm of left common iliac artery Gastroparesis Chronic pain of both knees Episode of visual loss of right eye Healthcare maintenance TSH Routine 07/18/2025 8:58 AM EST Type 2 diabetes mellitus with stage 4 chronic kidney disease, without long-term current use of insulin (HCC) Essential hypertension Other hyperlipidemia CKD (chronic kidney disease), stage IV (CMS/HCC) (HCC) Aneurysm of left common iliac artery Gastroparesis Chronic pain of both knees Episode of visual loss of right eye Healthcare maintenance LIPID PANEL, STANDARD Routine 07/18/2025 8:58 AM EST Type 2 diabetes mellitus with stage 4 chronic kidney disease, without long-term current use of insulin (HCC) Essential hypertension Other hyperlipidemia CKD (chronic kidney disease), stage IV (CMS/HCC) (HCC) Aneurysm of left common iliac artery Gastroparesis Chronic pain of both knees Episode of visual loss of right eye Healthcare maintenance VITAMIN D,25-OH,TOTAL,IA Routine 07/18/2025 8:58 AM EST Type 2 diabetes mellitus with stage 4 chronic kidney disease, without long-term current use of insulin (HCC) Essential hypertension Other hyperlipidemia CKD (chronic kidney disease), stage IV (CMS/HCC) (HCC) Aneurysm of left common iliac artery Gastroparesis Chronic pain of both knees Episode of visual loss of right eye Healthcare maintenance T4, FREE Routine 07/18/2025 8:58 AM EST Type 2 diabetes mellitus with stage 4 chronic kidney disease, without long-term current use of insulin (HCC) Essential hypertension Other hyperlipidemia CKD (chronic kidney disease), stage IV (CMS/HCC) (HCC) Aneurysm of left common iliac artery Gastroparesis Chronic pain of both knees Episode of visual loss of right eye Healthcare maintenance from Last 3 Months Results * XR Chest 1 View (08/24/2025 12:05 PM EST) Anatomical Region Laterality Modality Chest Radiographic Lizeth ging 08/24/2025 12:0 5 PM EST Narrative 08/24/2025 12:06 PM EST [address] [address] XRay Report Signed Patient: Juan Miguel Harrison MR#: [id number] : 1945 Acct:[id number] Age/Sex: 80 / M ADM Date: 08/24/25 Loc: HO.ED Attending Dr: Ordering Physician: Hayden Bailey Date of Service: 08/24/25 Procedure(s): XR chest 1V Accession Number(s): [id number] cc: Viktoriya Santillan DO; Hayden Bailey Reason for Exam: weakness CLINICAL HISTORY: weakness 1 view chest x-ray Comparison: 12/01/2023 Findings: Portions of the exam are obscured by overlying material. The lungs are clear. Heart size is normal. No acute fracture. IMPRESSION: 1. No acute findings. This document has been electronically signed by: Cornel Mujica MD on 08/24/2025 12:05:03 Dictated By: Cornel Mujica MD Signed By: <Electronically signed by Cornel Mujica MD in OV> 08/24/25 1206 DD/ 120 TD/TT: 08/24/251204 Cruise Agent: Procedure Note Donotuseinterpreter, Image - 08/24/2025 [place] [address] XRay Report Signed Patient: Juan Miguel Harrison LMR#: [id number] : 5Acct:[id number] Age/Sex: 80 / MADM Date: 08/24/25 Loc: .ED Attending Dr: Ordering Physician: Hayden Bailey Date of Service: 08/24/25 Procedure(s): XR chest 1V Accession Number(s): [id number] cc: Viktoriya Santillan Daniel Reason for Exam: weakness CLINICAL HISTORY: weakness 1 view chest x-ray Comparison: 12/01/2023 Findings: Portions of the exam are obscured by overlying material. The lungs are clear. Heart size is normal. No acute fracture. IMPRESSION: 1. No acute findings. This document has been electronically signed by: Cornel Mujica MD on 08/24/2025 12:05:03 Dictated By: Cornel Mujica MD Signed By: <Electronically signed by Cornel Mujica MD in OV> 08/24/25 1206 DD/ 1205 TD/TT: 08/24/251204 Cruise Agent: [facility] External Provider IMG XR PROCEDURES Edited Result - Final * VENOUS BLOOD GAS (08/24/2025 11:51 AM EST) VBG pH 7.35 7.32 - 7.43 [facility] Comment:METER #: [id number] additional_comment: Cb edwardt VBG PCO2 44 mmHg [facility] Comment:METER #: [id number] additional_comment: Cb edwardt VBG PO2 50 mmHg [facility] Comment:METER #: [id number] additional_comment: Cb edwardt VBG Base Excess -0.7 mmol/L [facility] Comment:METER #: [id number] additional_comment: Cb edwardt VBG HCO3 24 22 - 26 mmol/L [facility] Comment:METER #: [id number] additional_comment: Cb edwardt O2 Sat, Alex 77.0 % [facility] Comment:METER #: [id number] additional_comment: Cb edwardt 08/24/2025 11:5 1 AM EST 08/24/2025 11:54 AM EST us Generic External Data Provider LAB BLOOD ORDERAB LES Final Result Performing Organization Address City/State/[facility] Co de Phone Number [facility] [address] [place] [phone] * Prothrombin Time-INR (08/24/2025 11:46 AM EST) Prothrombin Time 12.4 11.2 - 13.5 SEC [facility] INTERNATIONAL NORM RATIO 1.0 0.9 - 1.1 [facility] Comment:INTERNATIONAL NORMAL IZED RATIO (INR) REFERENCE RANGES Reference RangeFor patients not on anticoagulant therapy: 0.9 - 1.1INR ranges for oral anticoagulanttherapy:For prevention and treatment of venous thrombosis and pulmonary embolism: 2.0 - 3.0For acute myocardial infarction with aspirin therapy: 2.0 - 3.0For acute myocardial infarction without aspirin therapy: 3.0 - 4.0For patients with mechanical prosthetic heart valves: 2.5 - 3.5 08/24/2025 11:4 6 AM EST 08/24/2025 11:49 AM EST Generic External Data Provider LAB BLOOD ORDERAB LES Final Result Performing Organization Address [facility] Co de Phone Number [facility] [address] [place] [phone] * (ABNORMAL) SARS-CoV-2 RNA, Influenza A/B, and RSV RNA, Ql NAAT (08/24/2025 11:42 AM EST) Pathologist [facility] Influenza A PCR POSITIVE(A) Negative [facility] Influenza B PCR NEGATIVE Negative [facility] Resp Syncy Virus RNA Qual PCR NEGATIVE Negative [facility] SARS COV2 PCR NEGATIVE Negative [facility] Comment:All test results mus t be correlated with clinical findings.Negative results do not preclude SARS-CoV2, influenza Avirus, influenza B virus and/or RSV infectionand should not be used as the sole basis for treatment orother patient management decisions. Negative results must becombined with clinical observations, patient history, andepidemiological information.This test has not been evaluated for monitoring treatment ofinfection.This test has been authorized by the FDA under an EmergencyUse Authorization (EUA) for use by authorized laboratories.Testing performed on the [employer] GeneXpert utilizingreal-time RT-PCR.All SARS CoV2 and positive influenza A/B results arereported to [facility]. 08/24/2025 11:4 2 AM EST 08/24/2025 11:49 AM EST us Generic External Data Provider LAB MICROBIOLOGY - GENERAL ORDERABLES Final Result Performing Organization Address [facility] Co de Phone Number [facility] [address] [place] [phone] * (ABNORMAL) CBC auto differential (08/24/2025 11:42 AM EST) Only the most recent of2 resultswithin the time period is included. Pathologist [facility] White Blood Count 5.2 4.8 - 10.8 X10*3/uL [facility] Red Blood Count 3.59(L) 4.60 - 5.80 X10*6/uL [facility] Hemoglobin 11.6(L) 14.0 - 18.0 g/dl [facility] Hematocrit 34.7(L) 42.0 - 52.0 % [facility] Mean Corpuscular Volume 96.7 80.0 - 98.0 fL [facility] Mean Corpuscular Hemoglobin 32.3 27.0 - 33.0 pg [facility] Mean Corpuscular HGB Conc 33.4 31.0 - 36.0 g/dl [facility] Red Cell Distribution Width 13.6 11.0 - 16.0 % [facility] Platelet Count 199 160 - 400 X10*3/uL [facility] Mean Platelet Volume 9.1(L) 9.4 - 12.4 fL [facility] Neutrophils Percent Auto 53.0 45 - 73 % [facility] Imm Gran Pct Auto 0.4 0.0 - 0.4 % [facility] Lymphocytes Percent Auto 37.6 20 - 40 % [facility] Monocytes Percent Auto 7.8 2 - 11 % [facility] Eosinophils Percent Auto 1.0 0 - 4 % [facility] Basophils Percent Auto 0.2 0 - 2 % [facility] NRBC Pct Auto 0.0 0.0 - 0.2 /100WBC [facility] Neutrophils Absolute Auto 2.8 2.0 - 8.3 x10*3/uL [facility] Imm Gran Abs Auto 0.02 0.00 - 0.03 X10*3/uL [facility] Lymphocytes Absolute Auto 2.0 1.2 - 4.9 X10*3/uL [facility] Monocytes Absolute Auto 0.4 0.1 - 1.2 X10*3/uL [facility] Eosinophils Absolute Auto 0.1 0.0 - 0.4 X10*3/uL [facility] Basophils Absolute Auto 0.0 0.0 - 0.2 X10*3/uL [facility] NRBC Abs Auto 0.000 0.0 - 0.012 X10*3/uL [facility] 08/24/2025 11:4 2 AM EST 08/24/2025 11:49 AM EST Generic External Data Provider LAB BLOOD ORDERAB LES Final Result Performing Organization Address [facility]/ZIP Co de Phone Number [facility] [address] [place] [phone] * Lipase (08/24/2025 11:42 AM EST) Pathologist [facility] Lipase 42 8 - 78 U/L [facility] 08/24/2025 11:4 2 AM EST 08/24/2025 11:49 AM EST Generic External Data Provider LAB BLOOD ORDERAB LES Final Result Performing Organization Address [facility] Co de Phone Number [facility] [address] [place] [phone] * Lactic Acid (08/24/2025 11:42 AM EST) Pathologist [facility] Lactic Acid 1.8 0.5 - 2.0 mmol/L [facility] 08/24/2025 11:4 2 AM EST 08/24/2025 11:49 AM EST Generic External Data Provider LAB BLOOD ORDERAB LES Final Result Performing Organization Address [facility] de Phone Number [facility] [address] [place] [phone] * (ABNORMAL) Comprehensive Metabolic Panel (08/24/2025 11:42 AM EST) Pathologist [facility] Sodium 135 135 - 145 mmol/L [facility] Potassium 3.6 3.3 - 5.1 mmol/L [facility] Chloride 102 96 - 108 mmol/L [facility] Carbon Dioxide 22 22 - 29 mmol/L [facility] Anion Gap 15 12 - 20 [facility] Urea Nitrogen (BUN) 34(H) 9 - 16 mg/dL [facility] Creatinine, Serum 2.60(H) 0.5 - 1.4 mg/dL [facility] Creatinine Clr Calc Pharmacy 27.1 [facility] Comment:eGFR (calculated fro m the MDRD study equation) and eCrCl(calculated from the Cockcroft-Gault equation) are based ondifferent parameters and may not yield comparable results.If eCrCl result is absurd, please check patient'sheight/weight. Estimated Glomerular Filt Rate 24 [facility] Comment:Chronic Kidney Disea se: Estimated GFR < 60 mL/min/[id number] Kidney Disease: Estimated GFR < 15 mL/min/1.73m2 Glucose 111 60 - 115 mg/dL [facility] Calcium 8.6 8.4 - 10.2 mg/dL [facility] Bilirubin, Total 0.5 0.0 - 1.0 mg/dL [facility] Aspartate Amino Transferase 31 5 - 37 U/L [facility] Alanine Aminotransferase 17 0 - 40 U/L [facility] Total Protein 6.5 6.5 - 8.0 g/dL [facility] Albumin Level 3.8 3.5 - 5.0 g/dL [facility] Alkaline Phosphatase 120(H) 39 - 117 U/L [facility] 08/24/2025 11:4 2 AM EST 08/24/2025 11:49 AM EST us Generic External Data Provider LAB BLOOD ORDERAB LES Final Result [facility] [address] [place] [phone] * (ABNORMAL) Vitamin D, 25-Hydroxy, Total, Immunoassay (07/18/2025 8:58 AM EST) Vitamin D 25-OH Total 16.6(L) >30 ng/mL [facility] Comment: Health Based Reference Values*< 20 ng/mL [id number] ng/mL Insufficient> 30 ng/mL Sufficient*Anupama SCHNEIDER. N Engl J Med. 2007;357:266-280There is no well-established upper level of normal vitamin Dlevels. Some laboratories use 50 ng/mL as an upper limit ofnormal. However, toxicity is patient-dependent and may occurat any level. Careful correlation with the patient'spresentation is necessary and, if there is concern forvitamin D toxicity, treatment should be consideredirrespective of the serum level.Care must be taken in interpreting Vitamin D results fromdifferent laboratories and methodologies. Published datademonstrated that results from patients undergoinghemodialysis may show a negative bias when tested withvarious automated 25-OH vitamin D assays when compared toLC-MS/MS.When testing samples from patients whose predominant form ofVitamin D is Vitamin D2, such as patients receiving VitaminD2 supplementation, results that are subtherapeutic shouldbe confirmed with another method such as LC-MS/MS. Blood Venous blood specimen / Unknown 07/18/2025 8:58 AM EST 07/18/2025 11:07 AM EST Viktoriya Santillan DO LAB BLOOD ORDERABLES Final R esult [facility] [address] [place] [address] [phone] * Albumin, Random Urine W/Creatinine (07/18/2025 8:58 AM EST) Creatinine, Urine 175.05 mg/dL [facility] Microalbumin Urine 46.0 mg/L [facility] Microalbum Creatinine Ratio Ur 26.2 <30 ug/mg cr [facility] Comment:Albumin/Creatinine R atio Reference Ranges: Normal: < 30 ug/mg creatinine Microalbuminuria: 30 - 300 ug/mg creatinineClinical Albuminuria: > 300 ug/mg creatinine Urine (Urine, Random) 07/18/2025 8:58 AM EST 07/18/2025 11:12 AM EST Viktoriya Santillan DO LAB URINE ORDERABLES Final R esult Performing Organization Address [facility]/ZIP Co de Phone Number [facility] [address] [place] [phone] * (ABNORMAL) Iron And Total Iron Binding Capacity (07/18/2025 8:58 AM EST) Iron 52 45 - 160 mcg/dL [facility] Total Iron Binding Capacity 115(L) 228 - 428 mcg/dL [facility] Percent Iron Saturation 45 15 - 50 % [facility] Unsaturated Iron Binding 63 ug/dL [facility] 07/18/2025 8:58 AM EST 07/18/2025 11:07 AM EST us Generic External Data Provider LAB BLOOD ORDERAB LES Final Result Performing Organization Address [facility] Co de Phone Number [facility] [address] [place] [phone] * (ABNORMAL) Urinalysis Complete (07/18/2025 8:58 AM EST) Color Urine Yellow [facility] Appearance Urine Clear [facility] PH 7.0 5.0 - 9.0 [facility] Glucose Urine UA Negative Negative mg/dL [facility] Urine Blood Negative Negative [facility] Specific [place] - Urine 1.015 1.005 - 1.025 [facility] Urine Protein Trace Neg-Trace mg/dL [facility] Urine Ketones Negative Negative mg/dL [facility] Nitrite Urine Negative Negative [facility] Leukocyte Esterase Urine Trace(A) Negative [facility] RBC Urine 0-2 0 - 2 /HPF [facility] Urine WBC 0-5 0 - 5 /HPF [facility] Urine Squamous Epithelial Cell 0-2 0 - 2 /HPF [facility] Urine Bacteria None Seen None Seen [facility] Hyaline Casts, Urine 0-2 0 - 2 /LPF [facility] 07/18/2025 8:58 AM EST 07/18/2025 11:12 AM EST us Generic External Data Provider LAB URINE ORDERAB LES Final Result Performing Organization Address [facility]/ZIP Co de Phone Number [facility] [address] [place] [phone] * (ABNORMAL) CBC (07/18/2025 8:58 AM EST) White Blood Count 5.3 4.8 - 10.8 X10*3/uL [facility] Red Blood Count 3.42(L) 4.60 - 5.80 X10*6/uL [facility] Hemoglobin 11.2(L) 14.0 - 18.0 g/dl [facility] Hematocrit 34.6(L) 42.0 - 52.0 % [facility] Mean Corpuscular Volume 101.2(H) 80.0 - 98.0 fL [facility] Mean Corpuscular Hemoglobin 32.7 27.0 - 33.0 pg [facility] Mean Corpuscular HGB Conc 32.4 31.0 - 36.0 g/dl [facility] Red Cell Distribution Width 13.9 11.0 - 16.0 % [facility] Platelet Count 227 160 - 400 X10*3/uL [facility] Mean Platelet Volume 9.9 9.4 - 12.4 fL [facility] NRBC Pct Auto 0.0 0.0 - 0.2 /100WBC [facility] NRBC Abs Auto 0.000 0.0 - 0.012 X10*3/uL [facility] Blood Venous blood specimen / Unknown 07/18/2025 8:58 AM EST 07/18/2025 11:07 AM EST us Viktoriya Santillan DO LAB BLOOD ORDERABLES Final R esult Performing Organization Address City/[facility]/ZIP Co de Phone Number [facility] [address] [place] [phone] * TSH (07/18/2025 8:58 AM EST) Thyroid Stimulating Hormone 0.79 0.32 - 4.0 uIU/mL [facility] Comment:TSH 3rd Generation ( [employer]) Blood Venous blood specimen / Unknown 07/18/2025 8:58 AM EST 07/18/2025 11:07 AM EST Viktoriya Santillan DO LAB BLOOD ORDERABLES Final R esult Performing Organization Address City/[facility]/ZIP Co de Phone Number [facility] [address] [place] [phone] * T4, Free (07/18/2025 8:58 AM EST) Free T4 (Free Thyroxine) 1.05 0.71 - 1.85 ng/dL [facility] Blood Venous blood specimen / Unknown 07/18/2025 8:58 AM EST 07/18/2025 11:07 AM EST Viktoriya Santillan DO LAB BLOOD ORDERABLES Final R esult Performing Organization Address [facility]/ZIP Co de Phone Number [facility] [address] [place] [phone] * Phosphate (As Phosphorus) (07/18/2025 8:58 AM EST) Phosphorus 3.4 2.7 - 4.5 mg/dL [facility] 07/18/2025 8:58 AM EST 07/18/2025 11:07 AM EST Generic External Data Provider LAB BLOOD ORDERAB LES Final Result Performing Organization Address [facility]/ZIP Co de Phone Number [facility] [address] [place] [address] [phone] * (ABNORMAL) PTH, Intact Without Calcium (07/18/2025 8:58 AM EST) Parathyroid Hormone, Intact 332.3(H) 8.7 - 77.1 pg/mL [facility] 07/18/2025 8:58 AM EST 07/18/2025 11:07 AM EST us Generic External Data Provider LAB BLOOD ORDERAB LES Final Result Performing Organization Address City/[facility]/ZIP Co de Phone Number [facility] [address] [place] [phone] * Hemoglobin A1c (07/18/2025 8:58 AM EST) Hemoglobin A1c 6.0 <6.0 % [facility] Comment:Hemoglobin A1C Refer ence Range Adults: 4.8 - 6.0 % Non diabetic: < 6.0 % Goal: < 7.0 %Additional Action Suggested: > 8.0 %Note: Hemoglobin A1c results are invalid for patients with abnormal amounts of HbF. Blood transfusions may impact the HbA1c concentration in the patient sample. Estimated Average Glucose 126 mg/dL [facility] Comment:eAG = Estimated ave rage glucose which is %A1C expressed asaverage glucose, using the formula of the X1I-BtvsjcsQxykuud Glucose study (ADAG), Diabetes Care, Vol.31,#8,Mar. 2007 Blood Venous blood specimen / Unknown 07/18/2025 8:58 AM EST 07/18/2025 11:07 AM EST us Viktoriya Santillan DO LAB BLOOD ORDERABLES Final R esult Performing Organization Address City/[facility]/ZIP Co de Phone Number [facility] [address] [place] [address] [phone] * Ferritin (07/18/2025 8:58 AM EST) Ferritin 108 20 - 250 ng/mL [facility] 07/18/2025 8:58 AM EST 07/18/2025 11:07 AM EST Generic External Data Provider LAB BLOOD ORDERAB LES Final Result Performing Organization Address [facility]/ZIP Co de Phone Number [facility] [address] [place] [address] [phone] * (ABNORMAL) Hepatic Function Panel (07/18/2025 8:58 AM EST) Only the most recent of2 resultswithin the time period is included. Bilirubin, Total 0.4 0.0 - 1.0 mg/dL [facility] Bilirubin, Direct 0.2 0.0 - 0.5 mg/dL [facility] Aspartate Amino Transferase 17 5 - 37 U/L [facility] Alanine Aminotransferase 8 0 - 40 U/L [facility] Total Protein 6.4(L) 6.5 - 8.0 g/dL [facility] Albumin Level 3.8 3.5 - 5.0 g/dL [facility] Alkaline Phosphatase 119(H) 39 - 117 U/L [facility] 07/18/2025 8:58 AM EST 07/18/2025 11:07 AM EST Generic External Data Provider LAB BLOOD ORDERAB LES Final Result Performing Organization Address [facility] Co de Phone Number [facility] [address] [place] [address] [phone] * (ABNORMAL) Lipid Panel, Standard (07/18/2025 8:58 AM EST) Triglycerides 51 <150 mg/dL [facility] Comment:Desirable Triglyceri de: less than 150 mg/dLBorderline High Triglyceride 150-199 mg/dLHigh Triglyceride: 200-499 mg/dLVery High Triglyceride: greater than or equal to 5OO mg/dL Cholesterol 162 <200 mg/dL [facility] Comment:Desirable Cholestero l: less than 200 mg/dLBorderline High Cholesterol: 200-239 mg/dLHigh Cholesterol: greater than 239 mg/dL LDL Cholesterol Calculated 100(H) <100 mg/dL [facility] Comment:Desirable LDL: less than 100 mg/dLNear Optimal/Above Optimal LDL: 110- 129 mg/dLBorderline High LDL: 130-159 mg/dLHigh LDL: 160-189 mg/dLVery High LDL: greater than or equal to 190 mg/dL HDL Cholesterol 52 >40 mg/dL [facility] Comment:Desirable HDL: great er than 40 mg/dL Note: This HDL assay may give artificially low results in patients with liver disease. Blood Venous blood specimen / Unknown 07/18/2025 8:58 AM EST 07/18/2025 11:07 AM EST us Viktoriya Santillan DO LAB BLOOD ORDERABLES Final R esult [facility] [address] [place] [phone] * (ABNORMAL) Basic Metabolic Panel (07/18/2025 8:58 AM EST) Sodium 140 135 - 145 mmol/L [facility] Potassium 4.1 3.3 - 5.1 mmol/L [facility] Chloride 107 96 - 108 mmol/L [facility] Carbon Dioxide 26 22 - 29 mmol/L [facility] Anion Gap 11(L) 12 - 20 [facility] Urea Nitrogen (BUN) 34(H) 9 - 16 mg/dL [facility] Creatinine, Serum 2.23(H) 0.5 - 1.4 mg/dL [facility] Estimated Glomerular Filt Rate 28 [facility] Comment:Chronic Kidney Disea se: Estimated GFR < 60 mL/min/1.68x0Myrajn Kidney Disease: Estimated GFR < 15 mL/min/1.73m2 Glucose 107 60 - 115 mg/dL [facility] Calcium 9.0 8.4 - 10.2 mg/dL [facility] Blood Venous blood specimen / Unknown 07/18/2025 8:58 AM EST 07/18/2025 11:07 AM EST us Viktoriya Santillan DO LAB BLOOD ORDERABLES Final R esult [facility] [address] [place] [phone] from Last 3 Months Additional Health Concerns Active Problems Noted Date [...] 08/19/2025 Patient has chronic kidney disease 08/19/2025 [place] [id number] [facility] [place] [employer] MEDICARE REPLACEMENT Care Teams President [employer] Relationship Specialty Start Date End Date Viktoriya Santillan DO [address] [place] [address] PCP - General Family Medicine 02/08/20
--- OUTSIDE RECORDS SUMMARY | 2025-08-24 13:05 | XMS_ITS | Encounter Summary ---
Author Organization [facility], Address [address] [place] [address] Phone Care Team Providers Care Stem Frazer Name Role Phone Viktoriya Santillan DO Primary Care Provider Unava ilable Reason for Visit * Reason Comments Med Refill Encounter Details Date Type Department Care Team (Late st Contact Info) Description 11/09/2023 Refill [facility] [address] [place] [address] Timbo Murillo MD [address] [place] [address] [place] [address] Social History Tobacco Use Types [...] Visit [facility], [address] [address] Timbo Murillo MD [address] [place] [address] documented as of this encounter Visit Diagnoses Not on filedocumented in this encounter Care Teams Stem Frazer Relationship Specialty Start Date End Date Viktoriya Santillan DO [address] [place] [phone] PCP - General Family Medicine 07/24/24 documented as of this encounter
--- OUTSIDE RECORDS SUMMARY | 2025-08-24 13:05 | XMS_ITS | Encounter Summary ---
Author Organization [facility], Address [address] [place] [address] Phone Care Team Providers Care Data Entry Representative Name Role Phone Viktoriya Santillan DO Primary Care Provider Unava ilable Reason for Visit * Reason Comments Med Refill Encounter Details Date Type Department Care Team (Late Contact Info) Description 02/07/2024 Refill [facility] [address] [place] [address] Timbo Murillo MD [address] [place] [address] [place] [address] Social History Tobacco Use Types [...] Visit [facility], [address] [place] [address] Timbo Murillo MD [address] [facility] [address] [place] [address] documented as of this encounter Visit Diagnoses Not on filedocumented in this encounter Care Teams Data Entry Representative Relationship Specialty Start Date End Date Viktoriya Santillan DO [address] [place] [phone] PCP - General Family Medicine 07/24/24 documented as of this encounter
--- OUTSIDE RECORDS SUMMARY | 2025-08-24 13:05 | XMS_ITS | Encounter Summary ---
Author Organization [employer] Address [address] [place] [address] [address] [place] [address] Care Team Providers Care Acute Care Physical Therapist Name Role Phone NoaViktoriya lynch Primary Care Provider + [phone] Encounter Details Date Type Department Care Team (Late st Contact Info) Description 08/24/2025 Orders Only GENERIC EXTERNAL DATA DEPARTMENT Provider, Generic External Data Social History Tobacco Use Types Packs/Day Years [...] housing situation today? I have karolyn marquez 08/16/[address] you [...] Description 09/03/2025 9:00 AM EST Office Visit [facility] [address] [place] [address] Viktoriya Santillan DO [address] [place] [address] documented as of this encounter Goals Goal [...] Care Plan Weekly blood pressure task No Lin Davey Weekly blood pressure task Care Plan Weekly blood pressure task No Lin, Davey Patient has chronic kidney disease Care Plan Patient has chronic kidney disease No Lin, Davey Patient has chronic kidney disease Care Plan Patient has chronic kidney disease No Lin Davey documented as of this encounter Procedures Procedure Name Priority Date/Time Associated Diagnosis Comments XR CHEST 1 VIEW Routine 08/24/2025 12:05 PM EST VENOUS BLOOD GAS Routine 08/24/2025 11:5 1 AM EST PROTHROMBIN TIME-INR Routine 08/24/2025 11:46 AM EST SARS COV2/INFLUENZA A/B AND RSV RNA QL NAAT Routine 08/24/2025 11:42 AM EST CBC WITH AUTO DIFFERENTIAL Routine 08/24/2025 11:42 AM EST LIPASE Routine 08/24/2025 11:42 AM EST LACTIC ACID Routine 08/24/2025 11:42 AM EST COMPREHENSIVE METABOLIC PANEL Routine 08/24/2025 11:42 AM EST documented in this encounter Results * XR Chest 1 View (08/24/2025 12:05 PM EST) Anatomical Region Laterality Modality Chest Radiographic Lizeth ging 08/24/2025 12:0 5 PM EST Narrative 08/24/2025 12:06 PM EST [address] [address] XRay Report Signed Patient: Juan Miguel Harrison MR#: [id number] : 1945 Acct:[id number] Age/Sex: 80 / M ADM Date: 08/24/25 Loc: HO.ED Attending Dr: Ordering Physician: Hayden Bailey Date of Service: 08/24/25 Procedure(s): XR chest 1V Accession Number(s): [id number] cc: Viktoriya Santillan DO; Hayden Bailey Reason [...] in OV> 08/24/25 1206 DD/ 1205 TD/TT: 08/24/25 1205 Manager Benefit: Procedure Note Donotuseinterpreter, Image - 08/24/2025 [place] [address] XRay Report Signed Patient: Juan Miguel Harrison LMR#: [id number] : 5Acct:[id number] Age/Sex: 80 / MADM Date: 08/24/25 Loc: .ED Attending Dr: Ordering Physician: Hayden Bailey Date of Service: 08/24/25 Procedure(s): XR chest 1V Accession Number(s): [id number] cc: Viktoriya Santillan Daniel Reason for Exam: [...] Mujica MD in OV> 08/24/25 1206 DD/ 04 TD/TT: 08/24/251204 Manager Benefit: [facility] External Provider IMG XR PROCEDURES Edited Result - Final * VENOUS BLOOD GAS (08/24/2025 11:51 AM EST) VBG pH 7.35 7.32 - 7.43 [facility] Comment:METER #: [id number] additional_comment: Cb edwardt VBG PCO2 44 mmHg [facility] Comment:METER #: [id number] additional_comment: Cb edwardt VBG PO2 50 mmHg [facility] Comment:METER #: [id number] additional_comment: Cb edwardt VBG Base Excess -0.7 mmol/L [facility] Comment:METER #: [id number] additional_comment: Cb edwardt VBG HCO3 24 22 - 26 mmol/L [facility] Comment:METER #: [id number] additional_comment: Cb edwardt O2 Sat, Alex 77.0 % [facility] Comment:METER #: [id number] additional_comment: Cb edwardt 08/24/2025 11:5 1 AM EST 08/24/2025 11:54 AM EST Generic External Data Provider LAB BLOOD ORDERAB LES Final Result [facility] [address] [place] [phone] * Prothrombin Time-INR (08/24/2025 11:46 AM EST) Prothrombin Time 12.4 11.2 - 13.5 SEC [facility] INTERNATIONAL NORM RATIO 1.0 0.9 - 1.1 [facility] Comment:INTERNATIONAL NORMAL IZED RATIO (INR) REFERENCE [...] ORDERAB LES Final Result Performing Organization Address [facility]/ZIP Co de Phone Number [facility] [address] [place] [phone] * (ABNORMAL) SARS-CoV-2 RNA, Influenza A/B, and RSV RNA, Ql NAAT (08/24/2025 11:42 AM EST) Influenza A PCR POSITIVE(A) Negative [facility] Influenza B PCR NEGATIVE Negative [facility] Resp Syncy Virus RNA Qual PCR NEGATIVE Negative [facility] SARS COV2 PCR NEGATIVE Negative [facility] Comment:All test results mus t [...] use by authorized laboratories.Testing performed on the [employer] GeneXpert utilizingreal-time RT-PCR.All SARS CoV2 and positive influenza A/B results arereported to [facility]. 08/24/2025 11:4 2 AM EST 08/24/2025 11:49 AM EST Generic External Data Provider LAB MICROBIOLOGY - GENERAL ORDERABLES Final Result Performing Organization Address City/[facility]/ZIP Co de Phone Number [facility] [address] [place] [address] [phone] * Lipase (08/24/2025 11:42 AM EST) Lipase 42 8 - 78 U/L [facility] 08/24/2025 11:4 2 AM EST 08/24/2025 11:49 AM EST us Generic External Data Provider LAB BLOOD ORDERAB LES Final Result [facility] [address] [place] [phone] * (ABNORMAL) Comprehensive Metabolic Panel (08/24/2025 11:42 AM EST) Sodium 135 135 - 145 mmol/L [facility] Potassium 3.6 3.3 - 5.1 mmol/L [facility] Chloride 102 96 - 108 mmol/L [facility] Carbon Dioxide 22 22 - 29 mmol/L [facility] Anion Gap 15 12 - 20 [facility] Urea Nitrogen (BUN) 34(H) 9 - 16 mg/dL [facility] Creatinine, Serum 2.60(H) 0.5 - 1.4 mg/dL [facility] Creatinine Clr Calc Pharmacy 27.1 [facility] Comment:eGFR (calculated fro m the MDRD study equation) and eCrCl(calculated from the Cockcroft-Gault equation) are based ondifferent parameters and may not yield comparable results.If eCrCl result is absurd, please check patient'sheight/weight. Estimated Glomerular Filt Rate 24 [facility] Comment:Chronic Kidney Disea se: Estimated GFR < 60 mL/min/1.46u6Lbcdlx Kidney Disease: Estimated GFR < 15 mL/min/1.73m2 Glucose 111 60 - 115 mg/dL [facility] Calcium 8.6 8.4 - 10.2 mg/dL [facility] Bilirubin, Total 0.5 0.0 - 1.0 mg/dL [facility] Aspartate Amino Transferase 31 5 - 37 U/L [facility] Alanine Aminotransferase 17 0 - 40 U/L [facility] Total Protein 6.5 6.5 - 8.0 g/dL [facility] Albumin Level 3.8 3.5 - 5.0 g/dL [facility] Alkaline Phosphatase 120(H) 39 - 117 U/L [facility] 08/24/2025 11:4 2 AM EST 08/24/2025 11:49 AM EST Generic External Data Provider LAB BLOOD ORDERAB LES Final Result Performing Organization Address [facility] Co de Phone Number [facility] [address] [place] [phone] * Lactic Acid (08/24/2025 11:42 AM EST) Pathologist [facility] Lactic Acid 1.8 0.5 - 2.0 mmol/L [facility] 08/24/2025 11:4 2 AM EST 08/24/2025 11:49 AM EST Generic External Data Provider LAB BLOOD ORDERAB LES Final Result Performing Organization Address [facility] de Phone Number [facility] [address] [place] [phone] * (ABNORMAL) CBC auto differential (08/24/2025 11:42 AM EST) White Blood Count 5.2 4.8 - 10.8 X10*3/uL [facility] Red Blood Count 3.59(L) 4.60 - 5.80 X10*6/uL [facility] Hemoglobin 11.6(L) 14.0 - 18.0 g/dl [facility] Hematocrit 34.7(L) 42.0 - 52.0 % [facility] Mean Corpuscular Volume 96.7 80.0 - 98.0 fL [facility] Mean Corpuscular Hemoglobin 32.3 27.0 - 33.0 pg [facility] Mean Corpuscular HGB Conc 33.4 31.0 - 36.0 g/dl [facility] Red Cell Distribution Width 13.6 11.0 - 16.0 % [facility] Platelet Count 199 160 - 400 X10*3/uL [facility] Mean Platelet Volume 9.1(L) 9.4 - 12.4 fL [facility] Neutrophils Percent Auto 53.0 45 - 73 % [facility] Imm Gran Pct Auto 0.4 0.0 - 0.4 % [facility] Lymphocytes Percent Auto 37.6 20 - 40 % [facility] Monocytes Percent Auto 7.8 2 - 11 % [facility] Eosinophils Percent Auto 1.0 0 - 4 % [facility] Basophils Percent Auto 0.2 0 - 2 % [facility] NRBC Pct Auto 0.0 0.0 - 0.2 /100WBC [facility] Neutrophils Absolute Auto 2.8 2.0 - 8.3 x10*3/uL [facility] Imm Gran Abs Auto 0.02 0.00 - 0.03 X10*3/uL [facility] Lymphocytes Absolute Auto 2.0 1.2 - 4.9 X10*3/uL [facility] Monocytes Absolute Auto 0.4 0.1 - 1.2 X10*3/uL [facility] Eosinophils Absolute Auto 0.1 0.0 - 0.4 X10*3/uL [facility] Basophils Absolute Auto 0.0 0.0 - 0.2 X10*3/uL [facility] NRBC Abs Auto 0.000 0.0 - 0.012 X10*3/uL [facility] 08/24/2025 11:4 2 AM EST 08/24/2025 11:49 AM EST us Generic External Data Provider LAB BLOOD ORDERAB LES Final Result [facility] [address] [place], [place] [phone] documented in this encounter Visit Diagnoses Not on filedocumented [...] documented as of this encounter Care Teams Acute Care Physical Therapist Relationship Specialty Start Date End Date Viktoriya Santillan DO [address] [place] [phone] PCP - General Family Medicine 02/08/20 documented as of this encounter
--- OUTSIDE RECORDS SUMMARY | 2025-08-24 13:05 | XMS_ITS | Encounter Summary ---
Author Organization [employer] Address [address] [place] [address] [address] [place] [address] Care Team Providers Care Industrial Cleaner Name Role Phone Viktoriya Santillan DO Primary Care Provider + [phone] Reason for Visit * Reason Comments Med Refill Encounter Details Date Type Department Care Team ([facility] st Contact Info) Description 05/07/2024 Refill [facility] [address] [place], [place] [phone] Viktoriya Santillan DO [address] [place], [place] [phone] Social History Tobacco Use Types Packs/Day Years [...] Description 09/03/2025 9:00 AM EST Office Visit [facility] [address] [place] [address] Viktoriya Santillan DO [address] [place] [address] documented as of this encounter Visit Diagnoses Not on filedocumented in this encounter Additional Health Concerns Assessment Noted Time PHQ-9 Depression Total Score: 3 09/15/19 23 9:37 AM EST documented as of this encounter Care Teams Industrial Cleaner Relationship Specialty Start Date End Date Viktoriya Santillan DO [address] [place] [address] PCP - General Family Medicine 02/08/20 documented as of this encounter
--- OUTSIDE RECORDS SUMMARY | 2025-08-24 13:05 | XMS_ITS | Encounter Summary ---
Author Organization [employer] Address [address] [place] [address] [address] [place] [address] Care Team Providers Care Cloth Laminating Supervisor Name Role Phone Viktoriya Santillan DO Primary Care Provider + [phone] Reason for Visit * Reason Onset Date Comments Medication Question 09/19/2024 Encounter Details Date Type Department Care Team ([facility] st Contact Info) Description 09/19/2024 Telephone [facility] [address] [place], [place] [id number] Viktoriya Santillan DO [address] [place], [place] [phone] Medication Question Social History Tobacco Use Types [...] 12:23 PM EST TC returned to [place] [phone] in regards to below message. RN was informed she is affiliated with [facility] and performs yearly home visits and they [...] depending on s/s. TC placed to patient [phone] in regards to above message. Patient verbalized understanding butreports he does not have a BP machine at home. RN will pend BP machine to pharmacy. Patient advisedto continue current BP medication regimen and to notify [facility] if BP continues to remain low or if patient becomes symptomatic. Patient verbalized understanding. Patient to f/u PRN. * Telephone Encounter - Jake Armstrong - 09/19/2024 8:59 AM EST Tc from [facility] stating that she took his [...] Description 09/03/2025 9:00 AM EST Office Visit [facility] [address] [place] [address] Viktoriya Santillan DO [address] [place] [address] documented as of this encounter Visit Diagnoses Not on filedocumented in this encounter Additional Health Concerns Assessment Noted Time PHQ-9 Depression Total Score: 3 09/15/19 23 9:37 AM EST documented as of this encounter Care Teams Cloth Laminating Supervisor Relationship Specialty Start Date End Date Viktoriya Santillan DO [address] [place] [address] PCP - General Family Medicine 02/08/20 documented as of this encounter
--- OUTSIDE RECORDS SUMMARY | 2025-08-24 13:05 | XMS_ITS | Clinical Summary ---
Author Organization [address] [place] [address] Address [address] [place] [address] Phone Care Team Providers Care Boat Cleaner Name Role Phone Viktoriya Santillan Primary Care Provider [phone] Allergies No known active allergies Medications loratadine 10 mg capsule Take 1 Capsule by mouth daily. Active pioglitazone (ACTOS) 15 mg tablet Take 1 Tablet by mouth daily. Active metoclopramide HCl (REGLAN ORAL) Take 5 mg by mouth 3 times daily. 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 Obesity 06/07/2024 YENNI (obstructive sleep apnea) 06/07/2024 Retinal vascular occlusion 06/07/2024 T2DM (type 2 diabetes mellitus) 06/07/2024 Tobacco dependence syndrome 06/07/2024 Tubular adenoma 06/07/2024 Immunizations Immunization Administration Dates Next Due Moderna SARS-CoV-2 COVID-19, [...] 02/23/2024, 01/30/2021 Depression Screening 08/29/2024 COVID-19 Vaccine ( season) 2025 06/08/2024, 10/03/2023, [...] Test (06/10/1998) Annual BMP Blood Test Abstracted [facility] Provider MD HEALTH MAINTENANCE Final Result from Last 3 Months or Most Recently Relevant to Health Maintenance Insurance [employer] MED[employer]ARE ADVANTAGE MEDICAID - [place] Care Teams Boat Cleaner Relationship Specialty Start Date End Date Viktoriya Santillan DO [address] [place] [address] PCP - General 03/13/24
--- OUTSIDE RECORDS SUMMARY | 2025-08-24 13:05 | XMS_ITS | Encounter Summary ---
Author Organization [facility] Address [address] [place] [address] Phone Care Team Providers Care Auto Mechanic Apprentice Name Role Phone Viktoriya Santillan DO Primary Care Provider Unava ilable Encounter Details Date Type Department Care Team (Late st Contact Info) Description 09/02/2021 Documentation Only [facility] [address] [place] [address] Timbo Murillo MD [address] [place] [address] Social History Tobacco Use Types [...] Visit [facility] [address] [place] [address] Timbo Murillo MD [address] [place] [address] documented as of this encounter Visit Diagnoses Not on filedocumented in this encounter Care Teams Auto Mechanic Apprentice Relationship Specialty Start Date End Date Viktoriya Santillan DO [address] [place] [id number] PCP - General Family Medicine 11/26/24 documented as of this encounter
--- OUTSIDE RECORDS SUMMARY | 2025-08-24 13:05 | XMS_ITS | Encounter Summary ---
Author Organization [facility] Address [address] [place] [address] Phone Care Team Providers Care Medical Service Representative Name Role Phone Viktoriya Santillan DO Primary Care Provider Unava ilable Encounter Details Date Type Department Care Team (Late st Contact Info) Description 07/18/2025 Documentation Only [facility] [address] [place] [address] Chantelle LaraDIETRICH, [place] [address] [place] [phone] Social History Tobacco Use Types Packs/Day Years [...] [facility] [address] [place] [address] Timbo Murillo MD [address] [place] [address] documented as of this encounter Visit Diagnoses Not on filedocumented in this encounter Care Teams Medical Service Representative Relationship Specialty Start Date End Date Viktoriya Santillan DO [address] [place] [id number] PCP - General Family Medicine 07/24/24 documented as of this encounter
== END 2025-08-24 14:15 | disposition home or self-care (01) ==
PROVIDERS: Physician Assistant; Emergency Provider Emergency Medicine; PCP Family Medicine
DX: J10.1 Influenza due to other identified influenza virus with other respiratory manifestations (principal); E11.22 Type 2 diabetes mellitus with diabetic chronic kidney disease; I12.9 Hypertensive chronic kidney disease with stage 1 through stage 4 chronic kidney disease, or unspecified chronic kidney disease; N18.9 Chronic kidney disease, unspecified; N17.9 Acute kidney failure, unspecified; I95.9 Hypotension, unspecified; R42 Dizziness and giddiness; R11.2 Nausea with vomiting, unspecified; E78.5 Hyperlipidemia, unspecified; Z87.891 Personal history of nicotine dependence; Z03.818 Encounter for observation for suspected exposure to other biological agents ruled out; Z79.02 Long term (current) use of antithrombotics/antiplatelets; Z79.899 Other long term (current) drug therapy
CPT/HCPCS: 36415; 71045; 80053; 82803; 83605; 83690; 85025; 85610; 87040; 87637; 93005; 96360; 96361; 99285; J7120

== ENCOUNTER → 2025-08-24 11:25 | Outpatient (BNV) | payer MEDICARE, SELFPAY | PROVIDERS: Emergency Provider Emergency Medicine; PCP Family Medicine; Visit Provider Internal Medicine Cardiovascular Disease | DX: R42 Dizziness and giddiness (principal) | CPT/HCPCS: 93010 ==

== ENCOUNTER → 2025-08-24 11:37 | Outpatient (BNV) | payer MEDICARE, SELFPAY | PROVIDERS: Emergency Provider Emergency Medicine; PCP Family Medicine; Visit Provider Specialist | DX: R53.1 Weakness (principal) | CPT/HCPCS: 71045 ==